=== PATIENT | male | born 1955 | race Caucasian/White ===

== ENCOUNTER 2016-11-22 19:47 | Observation (INO) ==
--- NOTE | 2016-11-22 20:23 | Emergency Department Note ---
START Narrative - START START: I examined this patient and my medical decision-making was reviewed with the STEEL LAYER/PA/Advanced Practice Nurse/Resident Physician. I agree with the documented findings, disposition and treatment plan as described except to the extent set forth below. 61 yo male presents with 8 hours of epigastric abdominal pain. started one hour after eating while working in the basement. Has been taking prilosec over the past couple days for "heart burn". Within the past couple hours the patient states the pain escalated, moved into his chest, described as sharp, stabbing in the bilateral lateral chest but did not radiate otherwise. Patient states he became short of breath which was associated with the pain. Denies n/v , diaphoresis, palpitations. No history of cardiac disease in the past and has not had a cardiac evaluation performed before. Patient had a negative first troponin. ECG showed normal sinus rhythm with rate of 96. Patient will be admitted to the hospital for further care and evaluation of his chest pain to rule out ACS.
[2016-11-22 20:53] LABS: Basophils % 0.1 %; Eosinophils % 0.2 %; Hemoglobin 14.9 g/dL (12.9-16.9); Immature Granulocytes % 0.5 % (0-4); Lymphocytes # 0.3 K/mcL (0.6-4.6); Lymphocytes % 3.8 %; Mean Corpuscular HGB Conc 33.1 g/dL (31.6-35.5); Mean Corpuscular Hemoglobin 28.9 pg (28.0-33.3); Mean Corpuscular Volume 87.2 fL (83.0-100.0); Mean Platelet Volume 10.1 fL (9.4-12.4); Monocytes # 0.5 K/mcL (0.0-1.3); Monocytes % 6.4 %; Neutrophils # 7.6 K/mcL (1.6-8.9); Platelet Count 315 K/mcL (140-400); Red Blood Count 5.16 M/mcL (4.19-5.50); Red Cell Distribution Width 13.1 % (11.5-14.5)
[2016-11-22 21:02] LABS: INR 1.1; Prothrombin Time 11.7 Seconds (9.4-12.1)
[2016-11-22 21:05] LABS: Activated Partial Thrombo Time 27.2 Seconds (26.0-36.0)
[2016-11-22 21:08] LABS: BUN/Creatinine Ratio 22 (6-26); Blood Urea Nitrogen 21 mg/dL (8-26); Carbon Dioxide 27 mEq/L (19-29); Chloride 103 mEq/L (98-109); Glucose 108 mg/dL (70-99); Osmolality,Calculated 294 (280-300); Potassium 3.7 mEq/L (3.5-4.5); eGFR For African Americans > 60 (> 60); eGFR For Non-African Americans > 60 (> 60)
[2016-11-22 21:09] LABS: Sodium 140 mEq/L (136-145)
--- NOTE | 2016-11-22 21:46 | Emergency Department Note ---
Disposition Clinical Impression: Chest pain Qualifiers: Chest pain type: unspecified Qualified Code(s): R07.9 - Chest pain, unspecified Disposition: Admitted As Inpatient Condition: Fair Referrals: NO,PCP [Non-Partnered Physician] - Forms: ED Satisfaction Letter Time of Disposition: 22:40 Chest Pain HPI - General Chief Complaint: ED Chest Pain Stated Complaint: chest pain julio c vomiting Time Seen by Provider: 11/22/16 19:58 Source: patient Limitations: no limitations Vital Signs Reviewed: Yes Nursing Notes Reviewed: Yes - History of Present Illness HPI Narrative: Patient is a 61-year-old male who presents to [facility] ED with a chief complaint of epigastric abdominal pain. States his symptoms started around 1 PM today and lasted until approximately 7:20 PM. States the pain came on gradually and was a burning sensation in the epigastric region. It had come on approximately one hour after he ate. States he was working downstairs in his basement and at approximately 3:30, the pain was so bad he had to stop working. States he laid down and either fell asleep or passed out. His woke him up around 4 PM. States he took a Prilosec as well as 2 Rolaids. States the pain was persistent and became very severe so much that it took his breath away. States he felt like he was very short of breath and the pain radiated up into his chest. Denies any nausea, vomiting, diaphoresis. No problems with urination or bowel movements. Patient states he did have flulike symptoms approximately one week ago but that resolved several days ago. Past medical history significant for hypertension. His only medications are lisinopril and sildafenil. Patient has never had a cardiac workup or a stress test performed. Pt complaint: chest pain Onset (ago): hour(s) Duration: gradually worsening, now resolved Onset: during exertion Pain Location: substernal, left chest, right chest Severity: severe Severity scale (1-10): 2 Quality: aching (burning) Pain Radiation: none Improves with: nothing Worsens with: exertion Associated symptoms: Reports: dyspnea. Denies: nausea, vomiting, diaphoresis, fever, cough Treatments prior to arrival chest pain: none - Related Data Home Medications Medication Instructions Recorded Confirmed Calcium Carbonate/Vitamin D3 1 tab PO DAILY 10/19/16 10/19/16 [Calcium 600-Vit D3 400 Tablet] Fluticasone Propionate Nasal 1 spray NS DAILY 10/19/16 10/19/16 [Flonase] Glucosamine HCl/Chondr Florez A Na 1 tab PO DAILY 10/19/16 10/19/16 [Cvs Glucosamine-Chondr Tablet] Lisinopril/Hydrochlorothiazide 1 tab PO DAILY 10/19/16 10/19/16 [Zestoretic 10-12.5 mg Tablet] Sildenafil Citrate [Viagra] 50 - 100 mg PO DAILY PRN 10/19/16 10/19/16 Allergies Allergy/AdvReac Type Severity Reaction Status Date / Time No Known Allergies Allergy Verified 11/22/16 19:49 All systems ED: reviewed and negative except as stated. Chest Pain PMH - Past Medical History Medical history: Reports: hypertension Surgical history: Reports: orthopedic, other Psychiatric history: Reports: no psych history - Social History Smoking Status: Never smoker Alcohol use: Reports: occasionally Drug use: Reports: none Physical Exam - General Limitations: no limitations General appearance: alert - Head Head exam: atraumatic, normocephalic, normal inspection - Eye Eye exam: Present: normal appearance, PERRL, EOMI - ENT ENT exam: normal exam, normal oropharynx, mucous membranes moist - Neck Neck exam: Present: normal inspection, full ROM, trachea midline - Chest Chest inspection: Present: normal inspection, symmetric chest wall rise - Respiratory Respiratory exam: Present: normal lung sounds bilaterally - Cardiovascular Cardiovascular exam: Present: regular rate, normal rhythm, normal heart sounds - Abdominal Exam Abdominal exam: Present: soft, tenderness, normal bowel sounds. Absent: distention, guarding, rebound, rigidity - Extremities Exam Extremities exam: Present: normal inspection, full ROM. Absent: tenderness, pedal edema - Back Exam Back exam: Present: normal inspection, full ROM. Absent: tenderness - Neurological Exam Neurological exam: Present: alert, oriented X3 - Psychiatric Psychiatric exam: Present: normal affect, normal mood - Skin Skin exam: Present: warm, dry, intact, normal color Course Course Narrative: Patient seen and examined. Epigastric abdominal pain radiating into the chest during exertion. No cardiac history. Cardiopulmonary workup initiated. - Reevaluation(s) Reevaluation #1: Patient's lab work appears unremarkable. An aspirin was ordered. EKG unremarkable. Due to patient's severe symptoms, we will go ahead and admit for observation. We will admit for chest pain, rule out ACS. I spoke with hospitalist Dr. Duque who has accepted patient for admission. Time: 22:41 Vital Signs Temperature 98.6 F 11/22/16 19:49 Pulse Rate 98 11/22/16 19:49 Respiratory Rate 20 11/22/16 19:49 Blood Pressure 150/89 11/22/16 19:49 O2 Sat by Pulse Oximetry 98 11/22/16 19:49 Temperature 98.6 F 11/22/16 19:49 Pulse Rate 84 11/22/16 21:25 Respiratory Rate 20 11/22/16 21:25 Blood Pressure 149/96 11/22/16 21:25 O2 Sat by Pulse Oximetry 97 11/22/16 21:25 Oxygen Delivery Oxygen Delivery Room Air Chest Pain - Medical Records Medical records reviewed: Yes I reviewed the patient's medical records. - Lab Data Lab results reviewed: Yes I reviewed the patient's lab results. Result diagrams: 11/22/16 20:41 11/22/16 20:41 Lab Results 11/22/16 11/22/16 11/22/16 Range/Units 20:41 20:41 20:41 WBC 8.5 (4.3-11.1) K/mcL RBC 5.16 (4.19-5.50) M/mcL Hgb 14.9 (12.9-16.9) g/dL Hct 45.0 (37.5-50.1) % MCV 87.2 (83.0-100.0) fL MCH 28.9 (28.0-33.3) pg MCHC 33.1 (31.6-35.5) g/dL RDW 13.1 (11.5-14.5) % Plt Count 315 (140-400) K/mcL MPV 10.1 (9.4-12.4) fL Immature Gran % 0.5 (0-4) % Seg Neutrophils % 89.0 % Lymphocytes % 3.8 % Monocytes % 6.4 % Eosinophils % 0.2 % Basophils % 0.1 % Neutrophils # 7.6 (1.6-8.9) K/mcL Lymphocytes # 0.3 L (0.6-4.6) K/mcL Monocytes # 0.5 (0.0-1.3) K/mcL Eosinophils # 0.0 (0.0-0.6) K/mcL Basophils # 0.0 (0.0-0.2) K/mcL PT 11.7 (9.4-12.1) Seconds INR 1.1 APTT 27.2 (26.0-36.0) Seconds Sodium 140 (136-145) mEq/L Potassium 3.7 (3.5-4.5) mEq/L Chloride 103 (98-109) mEq/L Carbon Dioxide 27 (19-29) mEq/L BUN 21 (8-26) mg/dL Creatinine 0.96 (0.72-1.25) mg/dL Est GFR ( Amer) > 60 (> 60) Est GFR (Non-Af Amer) > 60 (> 60) BUN/Creatinine Ratio 22 (6-26) Glucose 108 H (70-99) mg/dL Calculated Osmolality 294 (280-300) Calcium 9.0 (8.6-10.8) mg/dL Troponin I (0-0.03) ng/mL 11/22/16 Range/Units 20:41 WBC (4.3-11.1) K/mcL RBC (4.19-5.50) M/mcL Hgb (12.9-16.9) g/dL Hct (37.5-50.1) % MCV (83.0-100.0) fL MCH (28.0-33.3) pg MCHC (31.6-35.5) g/dL RDW (11.5-14.5) % Plt Count (140-400) K/mcL MPV (9.4-12.4) fL Immature Gran % (0-4) % Seg Neutrophils % % Lymphocytes % % Monocytes % % Eosinophils % % Basophils % % Neutrophils # (1.6-8.9) K/mcL Lymphocytes # (0.6-4.6) K/mcL Monocytes # (0.0-1.3) K/mcL Eosinophils # (0.0-0.6) K/mcL Basophils # (0.0-0.2) K/mcL PT (9.4-12.1) Seconds INR APTT (26.0-36.0) Seconds Sodium (136-145) mEq/L Potassium (3.5-4.5) mEq/L Chloride (98-109) mEq/L Carbon Dioxide (19-29) mEq/L BUN (8-26) mg/dL Creatinine (0.72-1.25) mg/dL Est GFR ( Amer) (> 60) Est GFR (Non-Af Amer) (> 60) BUN/Creatinine Ratio (6-26) Glucose (70-99) mg/dL Calculated Osmolality (280-300) Calcium (8.6-10.8) mg/dL Troponin I 0.00 (0-0.03) ng/mL - Radiology Data Radiology results reviewed: Yes I reviewed the patient's radiology results. Chest X-Ray 11/22/16 19:58 IMPRESSION: 1. Low lung volumes. D/ / 11/22/2016 20:19:11 Ethan Cohen MD / [email or web address] Interpreting Provider: Ethan Cohen MD - EKG Data EKG attestation: Yes I reviewed and interpreted this EKG. EKG results narrative: EKG done at 1958 shows normal sinus rhythm with a rate of [address] elevation or depression. Left axis deviation. Heart Score - Score History: Moderately Suspicious EKG: Non Specific repolarisation Disturbance Age: 45-65 Risk Factors: 1-2 risk factors Troponin: Less than normal limit HEART Score Total: 4
[2016-11-22] MEDS ORDERED: Aspirin 81 MG TAB.CHEW PO STA (21:59)
[2016-11-22] MEDS ORDERED: Naloxone 0.4 MG/ML INJ IVP PRN (23:31)
--- NOTE | 2016-11-22 23:39 | Internal Med History&Physical ---
Date of Encounter: 11/22/16 Time of Encounter: 23:35 Assessment and Plan (1) Chest pain Current visit: Yes Status: Acute Patient reports epigastric pain radiating to his chest and accompanied by shortness of breath earlier today. EKG showed normal sinus rhythm with no ST elevations or depressions. Initial troponin was negative. 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 Qualifiers: Chest pain type: precordial pain Qualified Code(s): R07.2 - Precordial pain (2) Hypertension Current visit: Yes Status: Acute Continue home doses of lisinopril and HCTZ. Qualifiers: Hypertension type: essential hypertension Qualified Code(s): I10 - Essential (primary) hypertension (3) Epigastric pain Current visit: Yes Status: Acute Patient reported burning epigastric pain radiating to his chest earlier today, accompanied by nausea and shortness of breath. Abdomen non-tender on exam. Differential includes GERD, cholecystitis/cholelithiasis, gastroenteritis, and will rule out ACS. lipase, LFTs ordered. (4) DVT prophylaxis Current visit: Yes Status: Acute Encourage ambulation anti-embolic stockings Internal Medicine - H&P: HPI Chief complaint: chest pain Admitted From: Emergency Dept Plans for Post Hospital Care: Home History of present illness: Mr. Ron is a 61 year old male with hypertension who presented to the emergency department this evening with complaints of epigastric and chest pain. Patient reports he was working on remodeling his basement when he started getting pain in his epigastric area at about 1 PM, and felt like every time he leaned over his food was coming up. The pain continued to worsen and by 3 PM it was so bad he had to discontinue his work, he reported he felt short of breath, the pain was radiating throughout his chest, it hurt when he took a deep breath. He reports the pain continued to worsen and he lay down around 5 or 6:00 he found a comfortable position and reports that the pain went away, he fell asleep and when he woke up the pain and shortness of breath was gone. He reports he had flu symptoms including fever and body aches approximately a week ago but those have resolved. He denies any lightheadedness, dizziness, headache , palpitations. He denies any vomiting, diarrhea, changes in stools, or bloody stools. He denies any numbness or tingling anywhere. He does report that he spent having episodes of heartburn on and off over the last several weeks, and he just started taking Prilosec yesterday. Evaluation in the emergency department included chest x-ray which showed low lung volumes, EKG which showed normal sinus rhythm and no ST elevations or depressions. Troponin was negative at 0.0. Rest of his lab work was unremarkable. On exam, patient is alert and oriented, in no acute distress, and appears to be resting comfortably. Heart has regular rate and rhythm, lungs are clear bilaterally to auscultation. Past Med Surg Social Fam HX - Past Medical History Medical history: hypertension Psychiatric history: no psych history - Past Surgical History Surgical History: orthopedic, other (finger surgery) - Social History Smoking Status: Never smoker Smokeless Tobacco Status: Yes Alcohol use: occasionally Drug use: none - Family History Mother Living Status: Cause of : Cancer Father Living Status: Still Living Internal Medicine - H&P: Meds Calcium Carbonate/Vitamin D3 [Calcium 600-Vit D3 400 Tablet] 1 tab PO BID [History] Fluticasone Propionate Nasal [Flonase] 1 spray NS DAILY 10/19/16 [History] Glucosamine HCl/Chondr Florez A Na [Cvs Glucosamine-Chondr Tablet] 1 tab PO BID [History] Lisinopril/Hydrochlorothiazide [Zestoretic 10-12.5 mg Tablet] 1 tab PO DAILY [History] Sildenafil Citrate [Viagra] 50 - 100 mg PO DAILY PRN 10/19/16 [History] Allergies No Known Allergies Allergy (Verified 11/22/16 19:49) All Systems PM: A 10-system review of systems was performed and is negative for pertinent findings except as documented above in the HPI. - Constitutional Constitutional: no chills, no fever(s), no night sweats - EENT Eyes: no change in vision, no discharge, no pain, no photophobia Ears: no ear discharge, no ear pain, no tinnitus Nose, mouth and throat: no dysphagia, no nasal discharge, no neck pain, no sore throat - Cardiovascular Cardiovascular ROS IM: chest pain, dyspnea, no diaphoresis, no lightheadedness, no palpitations, no syncope - Respiratory Respiratory: dyspnea, no cough, no wheezing, no excessive phlegm production - Gastrointestinal Gastrointestinal: abdominal pain, heartburn, nausea, no diarrhea, no hematemesis , no hematochezia, no melena, no vomiting - Musculoskeletal Musculoskeletal ROS IM: no numbness, no tingling - Integumentary Integumentary IM: no rash, no unusual bruising - Neurological Neurological ROS: no confusion, no convulsions, no focal weakness, no numbness, no tingling, no tremor(s) - Hematologic/Lymphatic Hematologic/Lymphatic: no easy bruising - Constitutional Vitals: Temp Pulse Resp BP Pulse Ox 98 F 88 18 144/80 99 11/22/16 22:59 11/22/16 22:25 11/22/16 22:59 11/22/16 22:59 11/22/16 22:25 General appearance: Present: A&O X 3, pleasant, no acute distress - Head Head exam: Present: atraumatic, normocephalic - Eye Eye exam: Present: PERRL, conjuntiva pink, sclera anicteric Pupils: Present: PERRL - Neck Neck exam general surgery: Present: supple, trachea midline. Absent: lymphadenopathy - Respiratory Respiratory exam: Present: CTAB. Absent: accessory muscle use, rales, rhonchi, wheezes - Cardiovascular Cardiovascular exam: Present: RRR, +S1, +S2. Absent: diastolic murmur, gallop, rubs, systolic murmur - GI/Abdominal GI/Abdominal exam: Present: normal bowel sounds, soft, no peritoneal signs. Absent: distended, tenderness - Extremities Exam Extremities exam: Present: warm, radial pulses palpable and symetrical. Absent : calf tenderness, cyanotic, pedal edema - Neurological Exam Neurological exam: Present: CN II-XII intact, oriented X3, no focal deficits. Absent: facial droop, speech deficit - Skin Skin exam: Present: dry, intact Internal Med - H&P Results - Labs CBC & Chem 7: 11/22/16 20:41 11/22/16 20:41 Labs: All Lab Results (24 Hours) 11/22/16 11/22/16 11/22/16 Range/Units 20:41 20:41 20:41 WBC 8.5 (4.3-11.1) K/mcL RBC 5.16 (4.19-5.50) M/mcL Hgb 14.9 (12.9-16.9) g/dL Hct 45.0 (37.5-50.1) % MCV 87.2 (83.0-100.0) fL MCH 28.9 (28.0-33.3) pg MCHC 33.1 (31.6-35.5) g/dL RDW 13.1 (11.5-14.5) % Plt Count 315 (140-400) K/mcL MPV 10.1 (9.4-12.4) fL Immature Gran % 0.5 (0-4) % Seg Neutrophils % 89.0 % Lymphocytes % 3.8 % Monocytes % 6.4 % Eosinophils % 0.2 % Basophils % 0.1 % Neutrophils # 7.6 (1.6-8.9) K/mcL Lymphocytes # 0.3 L (0.6-4.6) K/mcL Monocytes # 0.5 (0.0-1.3) K/mcL Eosinophils # 0.0 (0.0-0.6) K/mcL Basophils # 0.0 (0.0-0.2) K/mcL PT 11.7 (9.4-12.1) Seconds INR 1.1 APTT 27.2 (26.0-36.0) Seconds Sodium 140 (136-145) mEq/L Potassium 3.7 (3.5-4.5) mEq/L Chloride 103 (98-109) mEq/L Carbon Dioxide 27 (19-29) mEq/L BUN 21 (8-26) mg/dL Creatinine 0.96 (0.72-1.25) mg/dL Est GFR ( Amer) > 60 (> 60) Est GFR (Non-Af Amer) > 60 (> 60) BUN/Creatinine Ratio 22 (6-26) Glucose 108 H (70-99) mg/dL Calculated Osmolality 294 (280-300) Calcium 9.0 (8.6-10.8) mg/dL Troponin I (0-0.03) ng/mL 11/22/16 Range/Units 20:41 WBC (4.3-11.1) K/mcL RBC (4.19-5.50) M/mcL Hgb (12.9-16.9) g/dL Hct (37.5-50.1) % MCV (83.0-100.0) fL MCH (28.0-33.3) pg MCHC (31.6-35.5) g/dL RDW (11.5-14.5) % Plt Count (140-400) K/mcL MPV (9.4-12.4) fL Immature Gran % (0-4) % Seg Neutrophils % % Lymphocytes % % Monocytes % % Eosinophils % % Basophils % % Neutrophils # (1.6-8.9) K/mcL Lymphocytes # (0.6-4.6) K/mcL Monocytes # (0.0-1.3) K/mcL Eosinophils # (0.0-0.6) K/mcL Basophils # (0.0-0.2) K/mcL PT (9.4-12.1) Seconds INR APTT (26.0-36.0) Seconds Sodium (136-145) mEq/L Potassium (3.5-4.5) mEq/L Chloride (98-109) mEq/L Carbon Dioxide (19-29) mEq/L BUN (8-26) mg/dL Creatinine (0.72-1.25) mg/dL Est GFR ( Amer) (> 60) Est GFR (Non-Af Amer) (> 60) BUN/Creatinine Ratio (6-26) Glucose (70-99) mg/dL Calculated Osmolality (280-300) Calcium (8.6-10.8) mg/dL Troponin I 0.00 (0-0.03) ng/mL - Diagnostic Studies Chest x-ray Additional comments: Chest X-Ray 11/22/16 19:58 IMPRESSION: 1. Low lung volumes. D/ / 11/22/2016 20:19:11 Ethan Cohen MD / [email or web address] Interpreting Provider: Ethan Cohen MD
[2016-11-23 00:29] LABS: Albumin 3.8 g/dL (3.5-5.0); Bilirubin,Direct 1.8 mg/dL (0.0-0.5); Bilirubin,Indirect 0.8 mg/dL (0.0-1.2); Bilirubin,Total 2.6 mg/dL (0.2-1.2); Globulin 3.8 g/dL (2.4-3.5); Total Protein 7.6 g/dL (6.0-8.3)
[2016-11-23 04:37] LABS: Basophils % 0.2 %; Eosinophils % 0.1 %; Hemoglobin 13.4 g/dL (12.9-16.9); Immature Granulocytes % 0.4 % (0-4); Lymphocytes # 0.4 K/mcL (0.6-4.6); Lymphocytes % 3.7 %; Mean Corpuscular HGB Conc 32.7 g/dL (31.6-35.5); Mean Corpuscular Hemoglobin 28.3 pg (28.0-33.3); Mean Corpuscular Volume 86.7 fL (83.0-100.0); Mean Platelet Volume 10.5 fL (9.4-12.4); Monocytes # 0.6 K/mcL (0.0-1.3); Monocytes % 5.7 %; Neutrophils # 9.9 K/mcL (1.6-8.9); Platelet Count 298 K/mcL (140-400); Red Blood Count 4.73 M/mcL (4.19-5.50); Red Cell Distribution Width 13.1 % (11.5-14.5); Segmented Neutrophils % 89.9 %
[2016-11-23 04:56] LABS: BUN/Creatinine Ratio 25 (6-26); Blood Urea Nitrogen 19 mg/dL (8-26); Calcium 8.5 mg/dL (8.6-10.8); Carbon Dioxide 23 mEq/L (19-29); Chloride 104 mEq/L (98-109); Glucose 116 mg/dL (70-99); Osmolality,Calculated 289 (280-300); Sodium 138 mEq/L (136-145); eGFR For African Americans > 60 (> 60); eGFR For Non-African Americans > 60 (> 60)
[2016-11-23 05:09] LABS: Potassium 4.5 mEq/L (3.5-4.5)
[2016-11-23] MEDS ORDERED: Regadenoson 0.4 MG/5 ML SYRINGE IVP ONE (06:11)
--- NOTE | 2016-11-23 10:29 | Nuclear Medicine Stress Report ---
Exercise Nuclear Stress Name: Rafael Ron Date of Study: 11/23/2016 Date: 1955 Ht: 71.0 in Medical Record#: [id number] Age: 61 Wt: 214.0 lb Gender: Male Order #: [id number] Room: [facility] Supervising Provider: Jelly Castro CNP Reading Physician: Rahul Pandey DO, FACMan, SHADY GILBERT Ordering Physician: Sana Olvera CNP Primary Care Physician: Dennis Godwin MD Stress Technologist: Consuelo Ndiaye SYSTEMS DEVELOPMENT MANAGER, CCT Indications: Chest Pain Impression: Exercise ECG is negative for ischemia. The exercise capacity was excellent. Patient had no chest pain during stress. Gated EF = 74%. Perfusion imaging was negative for ischemia or infarct. History: Hypertension Stress Test Summary: Stress Test Type: Treadmill Protocol: Dane Baseline Information: Initial Heart Rate: 71 Blood Pressure: 122/78 Stress Information: Stress Time: 11 min 00 sec Test Terminated Due to (primary): Fatigue Maximum Blood Pressure: 174/80 Maximum Heart Rate: 147 Percent Maximum Heart Rate Achieved: 92 Double Product: [id number] METS Reached: 12.8 Symptoms: Fatigue, No chest symptoms Nuclear Summary: SPECT myocardial perfusion imaging using Tc99m Sestamibi given intravenously was performed at rest and following cardiac stress testing. The resting images were obtained following initial dose of 11.3 mCi. Following stress an additional dose of 34.9 mCi was given at peak exercise or 30 seconds post regadenoson infusion. Medication Given: Time Medication Dose Units Route Findings: Stress Note * Resting ECG demonstrated normal sinus rhythm. * No baseline arrhythmias were noted. * Exercise ECG is negative for ischemia. * Rare PVC and PAC noted during stress. * The exercise capacity was excellent. * Patient had no chest pain during stress. * Normal hemodynamic responses to exercise. Study Quality * Study quality is good. Gated EF % * Gated EF = 74%. Left Ventricle * The left ventricle is not dilated. LVEDV = 97 mL. NORMALS * Normal wall motion. * Normal segmental perfusion in stress. Apical Perfusion Rest * The apex segment shows a mild reduction in perfusion. This resolved with stress imaging, which is consistent with artifact. TID * No evidence of transient ischemic dilatation. TID ratio = 0.71. Lung Uptake * There is no evidence of increase lung uptake. Updated by Rahul Pandey DO, MATTY, OFELIA, SHADY on 11/23/2016 10:22:07 AM electronically signed on 11/23/2016 10:25:13 AM with status of Final
--- NOTE | 2016-11-23 11:39 | Internal Med Progress Note ---
Date of Encounter: 11/23/16 Time of Encounter: 10:30 - Assessment and plan (1) Chest pain Current Visit: Yes Status: Ruled-out Assessment and plan: Patient has denied chest pain since admission. Upon further discussion with the patient, his pain is located right upper quadrant and epigastric area. Troponins negative. Chest x-ray negative. Stress test negative. Acute coronary syndrome ruled out. ITS Impressions Chest X-Ray 11/22/16 19:58 IMPRESSION: 1. Low lung volumes. D/ / 11/22/2016 20:19:11 Ethan Cohen MD / eugene Interpreting Provider: Ethan Cohen MD Nuclear stress test impression: Exercise ECG is negative for ischemia. Exercise capacity was excellent. Patient had no chest pain during stress. Gated ejection fraction of 74%. Perfusion imaging was negative for ischemia or infarct. Qualifiers: Chest pain type: precordial pain Qualified Code(s): R07.2 - Precordial pain (2) Epigastric pain Current Visit: Yes Status: Acute Assessment and plan: Patient currently denies pain or nausea. Abdominal pelvic CT revealing cholelithiasis with calculus of gallbladder neck. Elevated liver enzymes as well as elevated bili noted on this morning's labs. Surgery Dr. Ruff has been brought onboard. Patient NPO pending surgical consult. ITS Impressions Abdomen/Pelvis CT 11/23/16 10:00 IMPRESSION: Cholelithiasis, with calculus at the gallbladder neck. Fatty liver. Sequela of granulomatous disease. 6 mm indeterminate noncalcified right middle lobe pulmonary nodule, with follow-up recommendations as below. 8 mm isodense lesion is seen exophytic from the posterior margin of the left kidney. Some considerations include hyperdense cyst or small renal neoplasm. Comparison with any remote outside prior would be helpful to determine any interval change. Ultrasound could be considered for further characterization. Fleischner Society guidelines for follow-up and management of incidentally detected pulmonary nodules:Single Solid Nodule:Nodule size less than 6 mmIn a low-risk patient, no routine follow-up.In a high-risk patient, optional CT at 12 months. Nodule size equals 6-8 mmIn a low-risk patient, CT at 6-12 months, then consider CT at 18-24 months.In a high-risk patient, CT at 6-12 months, then CT at 18-24 months.Nodule size greater than 8 mmIn a low-risk patient, consider CT, PET/CT, or tissue sampling at 3 months.In a high-risk patient, consider CT, PET/CT, or tissue sampling at 3 months.Multiple Solid Nodules:Nodule size less than 6 mmIn a low-risk patient, no routine follow-up.In a high-risk patient, optional CT at 12 months. Nodule size equals 6-8 mmIn a low-risk patient, CT at 3-6 months, then consider CT at 18-24 months.In a high-risk patient, CT at 3-6 months, then CT at 18-24 months.Nodule size greater than 8 mmIn a low-risk patient, CT at 3-6 months, then consider CT at 18-24 months.In a high-risk patient, CT at 3-6 months, then CT at 18-24 months.- Low risk patients include individuals with minimal or absent history of smoking and other known risk factors.- High risk patients include individuals with a history or smoking or known risk factors.Radiology 2017 http://pubs.rsna.org/doi/full/10.1148/radiol.4591046759 D/ / Orlando Peter MD / Orlando Peter MD Interpreting Provider: Orlando Peter MD (3) Cholelithiasis Current Visit: Yes Status: Acute (4) Transaminitis Current Visit: Yes Status: Acute (5) Elevated bilirubin Current Visit: Yes Status: Acute (6) Hypertension Current Visit: Yes Status: Chronic Assessment and plan: Controlled, home lisinopril/HCTZ continued (7) DVT prophylaxis Current Visit: Yes Status: Acute Assessment and plan: Up ad giulia. currently observation patient. - Subjective Interval history: Patient seen and examined. On examination, patient is sitting upright in his chair conversing with his . He denies pain or shortness of breath at this time. He states his last bout pain was last night and states that he is having intermittent bouts of right upper quadrant abdominal pain. - Constitutional Vitals: Temp Pulse Resp BP Pulse Ox 97.8 F 62 16 130/85 98 11/23/16 11:10 11/23/16 11:10 11/23/16 11:10 11/23/16 11:10 11/23/16 11:10 General appearance: Present: A&O X 3, pleasant, no acute distress, answers questions appropriately - Head Head exam: Present: atraumatic, normocephalic - Eye Eye exam: Present: PERRL, conjuntiva pink, sclera anicteric Pupils: Present: PERRL - Neck Neck exam general surgery: Present: supple, trachea midline. Absent: lymphadenopathy - Respiratory Respiratory exam: Present: CTAB. Absent: accessory muscle use, rales, respiratory distress, rhonchi, wheezes - Cardiovascular Cardiovascular exam: Present: RRR, +S1, +S2. Absent: diastolic murmur, gallop, rubs, systolic murmur - GI/Abdominal GI/Abdominal exam: Present: normal bowel sounds, soft, no peritoneal signs. Absent: distended, tenderness (no tenderness to RUQ or epigastric areas) - Extremities Exam Extremities exam: Present: warm, radial pulses palpable and symetrical. Absent : calf tenderness, cyanotic, pedal edema - Neurological Exam Neurological exam: Present: alert, CN II-XII intact, normal gait, oriented X3, no focal deficits, strengths equal and symetr throughout. Absent: pronater drift, facial droop, speech deficit - Skin Skin exam: Present: dry, intact, normal color, warm Internal Medicine: Result - Labs CBC & Chem 7: 11/23/16 03:58 11/23/16 03:58 Labs: Short CBC 11/23/16 Range/Units 03:58 WBC 11.0 (4.3-11.1) K/mcL Hgb 13.4 D (12.9-16.9) g/dL Hct 41.0 (37.5-50.1) % Plt Count 298 (140-400) K/mcL Neutrophils # 9.9 H (1.6-8.9) K/mcL BMP 11/23/16 03:58 Sodium 138 Potassium 4.5 Chloride 104 Carbon Dioxide 23 BUN 19 Creatinine 0.76 Glucose 116 H Calcium 8.5 L Cardiac Enzymes 11/23/16 Range/Units 03:58 Troponin I 0.01 (0-0.03) ng/mL - ABG Interpretation ABG results: PT/INR, D-dimer PT 11.7 Seconds (9.4-12.1) 11/22/16 20:41 - Impressions Impressions Abdomen/Pelvis CT 11/23/16 10:00 IMPRESSION: Cholelithiasis, with calculus at the gallbladder neck. Fatty liver. Sequela of granulomatous disease. 6 mm indeterminate noncalcified right middle lobe pulmonary nodule, with follow-up recommendations as below. 8 mm isodense lesion is seen exophytic from the posterior margin of the left kidney. Some considerations include hyperdense cyst or small renal neoplasm. Comparison with any remote outside prior would be helpful to determine any interval change. Ultrasound could be considered for further characterization. Fleischner Society guidelines for follow-up and management of incidentally detected pulmonary nodules:Single Solid Nodule:Nodule size less than 6 mmIn a low-risk patient, no routine follow-up.In a high-risk patient, optional CT at 12 months. Nodule size equals 6-8 mmIn a low-risk patient, CT at 6-12 months, then consider CT at 18-24 months.In a high-risk patient, CT at 6-12 months, then CT at 18-24 months.Nodule size greater than 8 mmIn a low-risk patient, consider CT, PET/CT, or tissue sampling at 3 months.In a high-risk patient, consider CT, PET/CT, or tissue sampling at 3 months.Multiple Solid Nodules:Nodule size less than 6 mmIn a low-risk patient, no routine follow-up.In a high-risk patient, optional CT at 12 months. Nodule size equals 6-8 mmIn a low-risk patient, CT at 3-6 months, then consider CT at 18-24 months.In a high-risk patient, CT at 3-6 months, then CT at 18-24 months.Nodule size greater than 8 mmIn a low-risk patient, CT at 3-6 months, then consider CT at 18-24 months.In a high-risk patient, CT at 3-6 months, then CT at 18-24 months.- Low risk patients include individuals with minimal or absent history of smoking and other known risk factors.- High risk patients include individuals with a history or smoking or known risk factors.Radiology 2017 http://pubs.rsna.org/doi/full/10.1148/radiol.1859096690 D/ / Orlando Peter MD / Orlando Peter MD Interpreting Provider: Orlando Peter MD Consult Discharge Plan - Plan Referrals: Dennis Godwin MD [Primary Care Provider] -
--- NOTE | 2016-11-23 11:48 | ECHO - Doppler Report ---
Echocardiogram Name: Rafael Ron Date of Study: 11/23/2016 Date: 1955 Ht: 70.0 in Medical Record#: [id number] Age: 61 Wt: 214.0 lb Gender: Male BSA: 2.15 Order #: [id number] Location: [facility] Room #: 3B12 Reading Physician: Rahul Pandey DO, FACC, OFELIA, SHADY Lead Applier: Yesenia Rizzo, JAM, RVT Ordering Physician: Pepper Pérez CNP Primary Physician: Dennis Godwin MD Indications: Chest pain Impressions: LVEF 65%. Normal LV chamber size, wall thickness and function. Moderate left ventricular diastolic dysfunction. Normal right ventricular structure and function. Moderately dilated left atrium. No evidence of pulmonary hypertension. No significant valvular dysfunction. Left Ventricular Wall Motion: Rest Echo Findings All wall segments showed normal motion. Findings: Study Quality * Technically adequate exam. ECG Findings * Normal sinus rhythm. Left Ventricle * LVEF 65%. * Normal LV chamber size, wall thickness and function. * Moderate left ventricular diastolic dysfunction. Right Ventricle * Normal right ventricular structure and function. Left Atrium * Moderately dilated left atrium. Right Atrium * Mildly dilated right atrium. Interatrial Septum * No evidence of PFO by color Doppler. Aortic Valve * Trileaflet aortic valve with normal function. * No aortic regurgitation. * No aortic stenosis. Mitral Valve * Normal mitral valve structure and function. * No mitral regurgitation. * No mitral stenosis. Tricuspid Valve * Normal tricuspid valve structure and function. * Trace tricuspid regurgitation. * No evidence of pulmonary hypertension. Pulmonic Valve * Pulmonic valve is not well visualized. * No pulmonic regurgitation. Aorta * Normally sized aortic root. Pericardium * The pericardium appears normal. IVC * Normal IVC dimensions and inspiratory collapse. Pulmonary Artery * Normal visualized portions of the main pulmonary artery. History Hypertension Measurements: BP: 135/ 86 2D Normal Values IVSd: 1.00 cm 0.6 - 1.0 cm LVIDd: 4.20 cm 3.7 - 5.6 cm LVPWd: .90 cm 0.6 - 1.1 cm LVIDs: 2.50 cm 1.5 - 3.6 cm AO: 2.70 cm < 4.0 cm LA: 4.30 cm 2.0 - 4.0cm %FS: 40.50 cm >25 % LA volume: 82 Mitral Valve Peak E:.68 m/sec Peak A:.44 m/sec E/A Ratio:1.5 Peak E' Lat Zheng:14.8 cm/s Peak E' Med Zheng:7.02 cm/s E/E' Lat Ratio:4.6 E/E' Med Ratio:9.7 Tricuspid Valve TV Regurg Peak Grad: 18.00mmHg TV Regurg Peak Zheng: 2.14m/sec Updated by Rahul Pandey DO, FACMan, OFELIA, SHADY on 11/23/2016 11:42:34 AM electronically signed on 11/23/2016 11:43:28 AM with status of Final Wall Motion Arana: 1=Normal, 2=Hypokinesis, 3=Akinesis, 4=Dyskinesis, 5=Aneurysmal, 6=Hyperkinetic, X=Not Visualized (Blank)=Missing
[2016-11-23 12:38] LABS: Albumin/Globulin Ratio 0.8 (1.1-2.2); Globulin 3.9 g/dL (2.4-3.5)
[2016-11-23 12:44] LABS: Bilirubin,Direct 2.3 mg/dL (0.0-0.5); Bilirubin,Indirect 2.4 mg/dL (0.0-1.2); Bilirubin,Total 4.7 mg/dL (0.2-1.2)
[2016-11-23 12:45] LABS: Albumin 3.2 g/dL (3.5-5.0); Total Protein 7.1 g/dL (6.0-8.3)
--- NOTE | 2016-11-23 16:32 | General Surgery Consult Note ---
Date of Encounter: 11/23/16 Time of Encounter: 16:15 Assessment and Plan (1) Cholelithiasis Current Visit: Yes Status: Acute May have clear liquids NPO after midnight MRCP today Dr. Mckeon to evaluate Supportive care/pain control Repeat labs Will consider cholecystectomy if indicated after evaluted by Dr. Mckeon Qualifiers: Cholelithiasis location: gallbladder Cholecystitis presence: with cholecystitis Cholecystitis acuity: acute and chronic Biliary obstruction: without biliary obstruction Qualified Code(s): K80.12 - Calculus of gallbladder with acute and chronic cholecystitis without obstruction (2) Elevated liver function tests Current Visit: Yes Status: Acute MRCP today Consult to Dr. Mckeon Repeat am labs History of Present Illness Consult date: 11/23/16 Reason for consult: abdominal pain Requesting physician: Sana Olvera History of present illness: Mr. Ron is a very pleasant 61 year old male with a past medical history significant for hypertension. He reported to the ED after having sudden onset of epigastric abdominal discomfort. He states that the pain progressively worsened and was radiating through his chest. He reports increasing pain with deep breaths and states that he felt short of breath. He denies having pain like this in the past. He denies fevers/chills. Denies any changes in bowel habits. He does admit to increasing heartburn symptoms over the past few weeks and states that he recently started taking prilosec. He has had radiological imaging which shows evidence of cholelithiasis with a stones around the neck of the gallbladder. He also has elevated liver function tests. We have been asked to see and evaluate the patient for recommendations. Past Med Surg Social Fam HX - Past Medical History Source: patient, old records reviewed Medical history: hypertension Psychiatric history: no psych history - Past Surgical History Surgical History: orthopedic, other (finger surgery), other (colonoscopy 2006) - Social History Smoking Status: Never smoker Smokeless Tobacco Status: Yes Alcohol use: occasionally Drug use: none - Family History Father Living Status: Still Living Hx Family Cardiac Disorders: Yes (HTN) Hx Family Respiratory Disorders: No Hx Family Cancer: Yes (Prostate) Hx Family GI Disorders: No Hx Family Genitourinary Disorders: No Hx Family Endocrine Disorder: No Hx Family Musculoskeletal Disorders: No Hx Family Neuromuscular Disorders: No Hx Family Neurologic Disorders: No Hx Family HEENT Disorders: No Hx Family Autoimmune Disorders: No Hx Family Reproductive Disorders: No Hx Family Psychosocial Disorders: No Hx Family Medical Disorders: No Mother Living Status: Cause of : Cancer Hx Family Cardiac Disorders: Yes (HTN) Hx Family Respiratory Disorders: No Hx Family Cancer: Yes (Sarcoma) Hx Family GI Disorders: No Hx Family Genitourinary Disorders: No Hx Family Endocrine Disorder: Yes (thyroid) Hx Family Musculoskeletal Disorders: No Hx Family Neuromuscular Disorders: No Hx Family Neurologic Disorders: No Hx Family HEENT Disorders: No Hx Family Autoimmune Disorders: No Hx Family Reproductive Disorders: No Hx Family Psychosocial Disorders: No Hx Family Medical Disorders: No Medications and Allergies Calcium Carbonate/Vitamin D3 [Calcium 600-Vit D3 400 Tablet] 1 tab PO BID [History] Fluticasone Propionate Nasal [Flonase] 1 spray NS DAILY 10/19/16 [History] Glucosamine HCl/Chondr Florez A Na [Cvs Glucosamine-Chondr Tablet] 1 tab PO BID [History] Lisinopril/Hydrochlorothiazide [Zestoretic 10-12.5 mg Tablet] 1 tab PO DAILY [History] Sildenafil Citrate [Viagra] 50 - 100 mg PO DAILY PRN 10/19/16 [History] Allergies No Known Allergies Allergy (Verified 11/22/16 19:49) Review of Systems All systems PM: reviewed and no additional remarkable complaints except as stated (in the HPI) All systems PM: A 10-system review of systems was performed and is negative for pertinent findings except as documented above in the HPI. General Surgery Exam Initial Vital Signs Temp Pulse Resp BP Pulse Ox 98.6 F 98 20 150/89 98 11/22/16 19:49 11/22/16 19:49 11/22/16 19:49 11/22/16 19:49 11/22/16 19:49 - General physical appearance well developed, well nourished, no distress - Eyes normal ocular movement - ENT normal mucosa, atraumatic, normocephalic - Neck trachea midline - Respiratory normal respiratory effort, clear to auscultation - Cardiovascular Cardiovascular exam: Present: RRR - Abdomen Abdomen general surgery: Present: bowel sounds present, soft, tender Abdominal Tenderness: Present: epigastic, RUQ - Integumentary Integumentary general surgery: Present: warm and dry - Neurologic Present: CN 2-12 grossly intact - Musculoskeletal Present: normal gait, normal posture - Psychiatric Psychiatric general surgery: Present: appropriate, oriented to person, oriented to place, oriented to time, speech is normal, memory intact Exam Initial Vital Signs Temp Pulse Resp BP Pulse Ox 98.6 F 98 20 150/89 98 11/22/16 19:49 11/22/16 19:49 11/22/16 19:49 11/22/16 19:49 11/22/16 19:49 Results - Labs 11/23/16 03:58 11/23/16 03:58 Abnormal lab results Neutrophils # 9.9 K/mcL (1.6-8.9) H 11/23/16 03:58 Lymphocytes # 0.4 K/mcL (0.6-4.6) L 11/23/16 03:58 Glucose 116 mg/dL (70-99) H 11/23/16 03:58 Calcium 8.5 mg/dL (8.6-10.8) L 11/23/16 03:58 Total Bilirubin 4.7 mg/dL (0.2-1.2) H D 11/23/16 12:10 Direct Bilirubin 2.3 mg/dL (0.0-0.5) H 11/23/16 12:10 Indirect Bilirubin 2.4 mg/dL (0.0-1.2) H 11/23/16 12:10 AST 355 Units/L (5-34) H 11/23/16 12:10 ALT 602 Units/L (0-55) H 11/23/16 12:10 Alkaline Phosphatase 582 Units/L (38-126) H 11/23/16 12:10 Albumin 3.2 g/dL (3.5-5.0) L 11/23/16 12:10 Globulin 3.9 g/dL (2.4-3.5) H 11/23/16 12:10 Albumin/Globulin Ratio 0.8 (1.1-2.2) L 11/23/16 12:10 Diabetes panel 11/23/16 11/23/16 Range/Units 03:58 12:10 Sodium 138 (136-145) mEq/L Potassium 4.5 (3.5-4.5) mEq/L Chloride 104 (98-109) mEq/L Carbon Dioxide 23 (19-29) mEq/L BUN 19 (8-26) mg/dL Creatinine 0.76 (0.72-1.25) mg/dL Glucose 116 H (70-99) mg/dL Calcium 8.5 L (8.6-10.8) mg/dL AST 355 H (5-34) Units/L ALT 602 H (0-55) Units/L Alkaline Phosphatase 582 H (38-126) Units/L Albumin 3.2 L (3.5-5.0) g/dL Calcium panel 11/23/16 11/23/16 Range/Units 03:58 12:10 Calcium 8.5 L (8.6-10.8) mg/dL Albumin 3.2 L (3.5-5.0) g/dL Pituitary panel 11/23/16 Range/Units 03:58 Sodium 138 (136-145) mEq/L Potassium 4.5 (3.5-4.5) mEq/L Chloride 104 (98-109) mEq/L Carbon Dioxide 23 (19-29) mEq/L BUN 19 (8-26) mg/dL Creatinine 0.76 (0.72-1.25) mg/dL Glucose 116 H (70-99) mg/dL Calcium 8.5 L (8.6-10.8) mg/dL Adrenal panel 11/23/16 11/23/16 Range/Units 03:58 12:10 Sodium 138 (136-145) mEq/L Potassium 4.5 (3.5-4.5) mEq/L Chloride 104 (98-109) mEq/L Carbon Dioxide 23 (19-29) mEq/L BUN 19 (8-26) mg/dL Creatinine 0.76 (0.72-1.25) mg/dL Glucose 116 H (70-99) mg/dL Calcium 8.5 L (8.6-10.8) mg/dL Total Bilirubin 4.7 H D (0.2-1.2) mg/dL AST 355 H (5-34) Units/L ALT 602 H (0-55) Units/L Alkaline Phosphatase 582 H (38-126) Units/L Albumin 3.2 L (3.5-5.0) g/dL All other labs normal. - Imaging CT scan - abdomen: report reviewed CT scan - pelvis: report reviewed Additional studies: Chest X-Ray 11/22/16 19:58 IMPRESSION: 1. Low lung volumes. D/ / 11/22/2016 20:19:11 Ethan Cohen MD / eugene Interpreting Provider: Ethan Cohen MD Abdomen/Pelvis CT 11/23/16 10:00 IMPRESSION: Cholelithiasis, with calculus at the gallbladder neck. Fatty liver. Sequela of granulomatous disease. 6 mm indeterminate noncalcified right middle lobe pulmonary nodule, with follow-up recommendations as below. 8 mm isodense lesion is seen exophytic from the posterior margin of the left kidney. Some considerations include hyperdense cyst or small renal neoplasm. Comparison with any remote outside prior would be helpful to determine any interval change. Ultrasound could be considered for further characterization. Fleischner Society guidelines for follow-up and management of incidentally detected pulmonary nodules:Single Solid Nodule:Nodule size less than 6 mmIn a low-risk patient, no routine follow-up.In a high-risk patient, optional CT at 12 months. Nodule size equals 6-8 mmIn a low-risk patient, CT at 6-12 months, then consider CT at 18-24 months.In a high-risk patient, CT at 6-12 months, then CT at 18-24 months.Nodule size greater than 8 mmIn a low-risk patient, consider CT, PET/CT, or tissue sampling at 3 months.In a high-risk patient, consider CT, PET/CT, or tissue sampling at 3 months.Multiple Solid Nodules:Nodule size less than 6 mmIn a low-risk patient, no routine follow-up.In a high-risk patient, optional CT at 12 months. Nodule size equals 6-8 mmIn a low-risk patient, CT at 3-6 months, then consider CT at 18-24 months.In a high-risk patient, CT at 3-6 months, then CT at 18-24 months.Nodule size greater than 8 mmIn a low-risk patient, CT at 3-6 months, then consider CT at 18-24 months.In a high-risk patient, CT at 3-6 months, then CT at 18-24 months.- Low risk patients include individuals with minimal or absent history of smoking and other known risk factors.- High risk patients include individuals with a history or smoking or known risk factors.Radiology 2017 http://pubs.rsna.org/doi/full/10.1148/radiol.8617191597 D/ / Orlando Peter MD / Orlando Peter MD Interpreting Provider: Orlando Peter MD Consult Discharge Plan - Plan Referrals: Dennis Godwin MD [Primary Care Provider] - - Attending Attestation I examined this patient and my medical decision-making was reviewed with the RACK CARRIER/PA/Advanced Practice Nurse/Resident Physician. I agree with the documented findings, disposition and treatment plan as described except to the extent set forth below.
[2016-11-23] MEDS ORDERED: Fluticasone Propionate Nasal 50 MCG/SPRAY BOTTLE NS PRN (23:41)
[2016-11-24 04:55] LABS: Albumin 2.8 g/dL (3.5-5.0); Albumin/Globulin Ratio 0.8 (1.1-2.2); Bilirubin,Indirect 0.8 mg/dL (0.0-1.2); Globulin 3.4 g/dL (2.4-3.5); Total Protein 6.2 g/dL (6.0-8.3)
[2016-11-24 04:56] LABS: Bilirubin,Total 1.9 mg/dL (0.2-1.2)
[2016-11-24 04:57] LABS: Bilirubin,Direct 1.1 mg/dL (0.0-0.5)
[2016-11-24] MEDS ORDERED: *HR* HYDROcodone/Acet 5/325 mg TABLET PO PRN (07:43)
[2016-11-24] MEDS ORDERED: *HR* Morphine 2 MG/ML SYRINGE IVP PRN (07:43)
[2016-11-24] MEDS ORDERED: 0.9 % Sodium Chloride 1,000 ML IVC SCH (07:45)
--- NOTE | 2016-11-24 12:31 | Gastroenterology Consult Note ---
<Donavan Longo - Last Filed: 11/24/16 12:29> Date of Encounter: 11/24/16 Time of Encounter: 10:45 - Assessment and plan (1) Cholelithiasis Current Visit: Yes Status: Acute Assessment and plan: MRI with cholelithiasis 2 mm area of hypointense signal change seen in the region of the extrahepatic common duct. Recommend cholecystectomy with intraoperative cholangiogram. If IOC abnormal we will plan ERCP. Qualifiers: Cholelithiasis location: gallbladder Cholecystitis presence: with cholecystitis Cholecystitis acuity: acute and chronic Biliary obstruction: without biliary obstruction Qualified Code(s): K80.12 - Calculus of gallbladder with acute and chronic cholecystitis without obstruction (2) Epigastric pain Current Visit: Yes Status: Acute (3) Elevated liver function tests Current Visit: Yes Status: Acute Assessment and plan: Recommend cholecystitis with IOC, if abnormal plan for ERCP. Continue to monitor hepatic panel. - Time Spent With Patient Total time spent is greater than 50% in coordination of care (as documented) at patient's floor/unit and/or counseling patient: GI History of Present Illness - Data of Consult Patient: new to practice Consult date: 11/24/16 Requesting Physician: Sana Berger - Consult Narrative Reason for consult: Increased LFTs and bili History of present illness: Mr. Ron is a 61 year old male with PMHx of HTN who presented to the ED with sudden onset of epigastric pain with radiation to his chest. Caal progressively worsened over the day. He started Prilosec the day before admission due to increasing reflux symptoms. He denies fever, chills, nausea, vomiting, diarrhea , constipation, melena, or hematochezia. MRI with cholelithiasis 2 mm area of hypointense signal change seen in the region of the extrahepatic common duct. CT A/P with fatty liver. Procedures: Colonoscopy 10/19/2016 Dr. Benedicto valenzuela NSAIDs: None Anticoagulation: None Past Med Surg Social Fam HX - Past Medical History Medical history: hypertension Psychiatric history: no psych history - Past Surgical History Surgical History: orthopedic, other (finger surgery), other (colonoscopy 2006) - Social History Smoking Status: Never smoker Smokeless Tobacco Status: Yes Alcohol use: occasionally Drug use: none - Family History Father Living Status: Still Living Hx Family Cardiac Disorders: Yes (HTN) Hx Family Respiratory Disorders: No Hx Family Cancer: Yes (Prostate) Hx Family GI Disorders: No Hx Family Genitourinary Disorders: No Hx Family Endocrine Disorder: No Hx Family Musculoskeletal Disorders: No Hx Family Neuromuscular Disorders: No Hx Family Neurologic Disorders: No Hx Family HEENT Disorders: No Hx Family Autoimmune Disorders: No Hx Family Reproductive Disorders: No Hx Family Psychosocial Disorders: No Hx Family Medical Disorders: No Mother Living Status: Cause of : Cancer Hx Family Cardiac Disorders: Yes (HTN) Hx Family Respiratory Disorders: No Hx Family Cancer: Yes (Sarcoma) Hx Family GI Disorders: No Hx Family Genitourinary Disorders: No Hx Family Endocrine Disorder: Yes (thyroid) Hx Family Musculoskeletal Disorders: No Hx Family Neuromuscular Disorders: No Hx Family Neurologic Disorders: No Hx Family HEENT Disorders: No Hx Family Autoimmune Disorders: No Hx Family Reproductive Disorders: No Hx Family Psychosocial Disorders: No Hx Family Medical Disorders: No - Gastrointestinal Gastrointestinal: Present: as per HPI - Constitutional Constitutional: as per HPI - EENT Eyes: as per HPI Ears: Present: as per HPI Nose, mouth and throat: Present: as per HPI - Cardiovascular Cardiovascular ROS: Present: as per HPI - Respiratory Respiratory IM: Present: as per HPI - Genitourinary Genitourinary: Absent: change in color, Urinary frequency - Neurological ROS Neurological GI: Present: as per HPI - Hematologic/Lymphatic Hematologic/Lymphatic pediatric: Present: as per HPI - Musculoskeletal Musculoskeletal ROS GI: Present: as per HPI - Integumentary Integumentary GI: Present: as per HPI - Psychiatric ROS Psychiatric GI: Present: as per HPI - Endocrine Endocrine IM: Present: as per HPI - Constitutional Vitals: Temp Pulse Resp BP Pulse Ox 97.9 F 76 16 120/77 95 11/24/16 12:05 11/24/16 12:05 11/24/16 12:05 11/24/16 12:05 11/24/16 12:05 General appearance: Present: cooperative, A&O X 3, no acute distress, answers questions appropriately - Head Head exam: Present: atraumatic, normocephalic - Eye Eye exam: Present: normal appearance, sclera anicteric - ENT ENT exam: Present: mucous membranes dry - Neck Neck exam general surgery: Present: normal inspection, trachea midline - Respiratory Respiratory exam: Present: CTAB. Absent: rales, rhonchi, wheezes - Cardiovascular Cardiovascular exam: Present: RRR, +S1, +S2 - GI/Abdominal GI/Abdominal exam: Present: soft, tenderness (RUQ, midepigastric ), no peritoneal signs. Absent: distended, firm, guarding - Rectal Rectal exam: Present: deferred - Extremities Exam Extremities exam: Present: warm - Neurological Exam Neurological exam: Present: no focal deficits - Psychiatric Psychiatric exam: Present: normal affect, normal mood - Skin Skin exam: Present: dry, intact, normal color, warm Results - Labs CBC & Chem 7: 11/23/16 03:58 11/23/16 03:58 Labs: Last Result Calcium 8.5 mg/dL (8.6-10.8) L 11/23/16 03:58 Troponin I 0.01 ng/mL (0-0.03) 11/23/16 03:58 Entire Visit Hgb 13.4 g/dL (12.9-16.9) D 11/23/16 03:58 Hct 41.0 % (37.5-50.1) 11/23/16 03:58 PT 11.7 Seconds (9.4-12.1) 11/22/16 20:41 Total Bilirubin 1.9 mg/dL (0.2-1.2) H D 11/24/16 03:28 AST 195 Units/L (5-34) H 11/24/16 03:28 ALT 448 Units/L (0-55) H 11/24/16 03:28 Lipase 16 Units/L (8-78) 11/22/16 20:41 - ABG ABG results: PT/INR, D-dimer PT 11.7 Seconds (9.4-12.1) 11/22/16 20:41 - Impressions Impressions Abdomen MRI 11/23/16 15:06 IMPRESSION: There is a tiny 2 mm area of hypointense signal change seen in region of the extrahepatic common duct, near the duct insertion. This is only seen on the MIP images. This likely corresponds to a small calcification seen on axial image [address] scan. Given the respiratory motion, It is difficult to determine if this is either in the common duct, representing a nonobstructing stone, or indicative of a small adjacent calcification, as it is only seen on the MIP image. Cholelithiasis. No cholecystitis. D/ / Grayson Dutton MD / Grayson Dutton MD Interpreting Provider: Grayson Dutton MD Consult Discharge Plan - Plan Referrals: Dennis Godwin MD [Primary Care Provider] - <Jeramy Mckeon - Last Filed: 11/24/16 17:51> Time of Encounter: 13:00 - Time Spent With Patient Total time spent is greater than 50% in coordination of care (as documented) at patient's floor/unit and/or counseling patient: GI History of Present Illness - Data of Consult Requesting Physician: Sana Berger - Consult Narrative History of present illness: Mr. Ron is a 61 year old male - Constitutional Vitals: Temp Pulse Resp BP Pulse Ox 98.1 F 74 12 146/80 94 L 11/24/16 15:09 11/24/16 15:09 11/24/16 15:09 11/24/16 15:09 11/24/16 15:09 Results - Labs CBC & Chem 7: 11/23/16 03:58 11/23/16 03:58 Labs: Last Result Calcium 8.5 mg/dL (8.6-10.8) L 11/23/16 03:58 Troponin I 0.01 ng/mL (0-0.03) 11/23/16 03:58 Entire Visit Hgb 13.4 g/dL (12.9-16.9) D 11/23/16 03:58 Hct 41.0 % (37.5-50.1) 11/23/16 03:58 PT 11.7 Seconds (9.4-12.1) 11/22/16 20:41 Total Bilirubin 1.9 mg/dL (0.2-1.2) H D 11/24/16 03:28 AST 195 Units/L (5-34) H 11/24/16 03:28 ALT 448 Units/L (0-55) H 11/24/16 03:28 Lipase 16 Units/L (8-78) 11/22/16 20:41 - ABG ABG results: PT/INR, D-dimer PT 11.7 Seconds (9.4-12.1) 11/22/16 20:41 - Attending Attestation I examined this patient and my medical decision-making was reviewed with the DISEASE CASE MANAGER/PA/Advanced Practice Nurse/Resident Physician. I agree with the documented findings, disposition and treatment plan as described except to the extent set forth below.
--- NOTE | 2016-11-24 15:30 | Internal Med Progress Note ---
Date of Encounter: 11/24/16 Time of Encounter: 14:00 - Assessment and plan (1) Chest pain Current Visit: Yes Status: Ruled-out Assessment and plan: Patient has denied chest pain since admission. Upon further discussion with the patient, his pain is located right upper quadrant and epigastric area. Troponins negative. Chest x-ray negative. Stress test negative. Acute coronary syndrome ruled out. ITS Impressions Chest X-Ray 11/22/16 19:58 IMPRESSION: 1. Low lung volumes. D/ / 11/22/2016 20:19:11 Ethan Cohen MD / eugene Interpreting Provider: Ethan Cohen MD Nuclear stress test impression: Exercise ECG is negative for ischemia. Exercise capacity was excellent. Patient had no chest pain during stress. Gated ejection fraction of 74%. Perfusion imaging was negative for ischemia or infarct. Qualifiers: Chest pain type: precordial pain Qualified Code(s): R07.2 - Precordial pain (2) Epigastric pain Current Visit: Yes Status: Acute Assessment and plan: Patient continues to deny pain or nausea. Abdominal pelvic CT revealing cholelithiasis with calculus of gallbladder neck. Elevated liver enzymes as well as elevated bili with repeat labs trending down. Initially, GI was brought on board who recommended surgical consult. GI then recommended an MRCP which revealed 2 mm area of hypodense signal change in the extrahepatic common duct. GI has recommended cholecystectomy with intraoperative cholangiogram. If intraoperative cholangiogram is abnormal, ERCP will be performed tomorrow. Plan is for cholecystectomy per surgery Dr. Elzbieta john today. ITS Impressions Abdomen/Pelvis CT 11/23/16 10:00 IMPRESSION: Cholelithiasis, with calculus at the gallbladder neck. Fatty liver. Sequela of granulomatous disease. 6 mm indeterminate noncalcified right middle lobe pulmonary nodule, with follow-up recommendations as below. 8 mm isodense lesion is seen exophytic from the posterior margin of the left kidney. Some considerations include hyperdense cyst or small renal neoplasm. Comparison with any remote outside prior would be helpful to determine any interval change. Ultrasound could be considered for further characterization. Fleischner Society guidelines for follow-up and management of incidentally detected pulmonary nodules:Single Solid Nodule:Nodule size less than 6 mmIn a low-risk patient, no routine follow-up.In a high-risk patient, optional CT at 12 months. Nodule size equals 6-8 mmIn a low-risk patient, CT at 6-12 months, then consider CT at 18-24 months.In a high-risk patient, CT at 6-12 months, then CT at 18-24 months.Nodule size greater than 8 mmIn a low-risk patient, consider CT, PET/CT, or tissue sampling at 3 months.In a high-risk patient, consider CT, PET/CT, or tissue sampling at 3 months.Multiple Solid Nodules:Nodule size less than 6 mmIn a low-risk patient, no routine follow-up.In a high-risk patient, optional CT at 12 months. Nodule size equals 6-8 mmIn a low-risk patient, CT at 3-6 months, then consider CT at 18-24 months.In a high-risk patient, CT at 3-6 months, then CT at 18-24 months.Nodule size greater than 8 mmIn a low-risk patient, CT at 3-6 months, then consider CT at 18-24 months.In a high-risk patient, CT at 3-6 months, then CT at 18-24 months.- Low risk patients include individuals with minimal or absent history of smoking and other known risk factors.- High risk patients include individuals with a history or smoking or known risk factors.Radiology 2017 http://pubs.rsna.org/doi/full/10.1148/radiol.8714583076 D/ / Orlando Peter MD / Orlando Peter MD Interpreting Provider: Orlando Peter MD (3) Cholelithiasis Current Visit: Yes Status: Acute (4) Transaminitis Current Visit: Yes Status: Acute (5) Elevated bilirubin Current Visit: Yes Status: Acute (6) Hypertension Current Visit: Yes Status: Chronic Assessment and plan: Controlled, home lisinopril/HCTZ continued (7) DVT prophylaxis Current Visit: Yes Status: Acute Assessment and plan: Up ad giulia. currently observation patient. - Subjective Interval history: Patient seen and examined. On examination, patient is sitting upright in his chair conversing with his and son. He denies pain or shortness of breath at this time. He denies concerns regarding his upcoming procedure. - Constitutional Vitals: Temp Pulse Resp BP Pulse Ox 98.1 F 74 12 146/80 94 L 11/24/16 15:09 11/24/16 15:09 11/24/16 15:09 11/24/16 15:09 11/24/16 15:09 General appearance: Present: A&O X 3, pleasant, no acute distress, answers questions appropriately - Head Head exam: Present: atraumatic, normocephalic - Eye Eye exam: Present: PERRL, conjuntiva pink, sclera anicteric Pupils: Present: PERRL - Neck Neck exam general surgery: Present: supple, trachea midline. Absent: lymphadenopathy - Respiratory Respiratory exam: Present: CTAB. Absent: accessory muscle use, rales, respiratory distress, rhonchi, wheezes - Cardiovascular Cardiovascular exam: Present: RRR, +S1, +S2. Absent: diastolic murmur, gallop, rubs, systolic murmur - GI/Abdominal GI/Abdominal exam: Present: normal bowel sounds, soft, no peritoneal signs. Absent: distended, tenderness - Extremities Exam Extremities exam: Present: warm, radial pulses palpable and symetrical. Absent : calf tenderness, cyanotic, pedal edema - Neurological Exam Neurological exam: Present: alert, CN II-XII intact, oriented X3, no focal deficits, strengths equal and symetr throughout. Absent: pronater drift, facial droop, speech deficit - Skin Skin exam: Present: dry, intact, normal color, warm Internal Medicine: Result - Labs CBC & Chem 7: 11/23/16 03:58 11/23/16 03:58 Labs: Liver Function 11/24/16 Range/Units 03:28 Total Bilirubin 1.9 H D (0.2-1.2) mg/dL Direct Bilirubin 1.1 H D (0.0-0.5) mg/dL AST 195 H (5-34) Units/L ALT 448 H (0-55) Units/L Alkaline Phosphatase 472 H (38-126) Units/L Albumin 2.8 L (3.5-5.0) g/dL - ABG Interpretation ABG results: PT/INR, D-dimer PT 11.7 Seconds (9.4-12.1) 11/22/16 20:41 - Impressions Impressions Abdomen MRI 11/23/16 15:06 IMPRESSION: There is a tiny 2 mm area of hypointense signal change seen in region of the extrahepatic common duct, near the duct insertion. This is only seen on the MIP images. This likely corresponds to a small calcification seen on axial image [address] scan. Given the respiratory motion, It is difficult to determine if this is either in the common duct, representing a nonobstructing stone, or indicative of a small adjacent calcification, as it is only seen on the MIP image. Cholelithiasis. No cholecystitis. D/ / Grayson Dutton MD / Grayson Dutton MD Interpreting Provider: Grayson Dutton MD Consult Discharge Plan - Plan Referrals: Dennis Godwin MD [Primary Care Provider] -
--- NOTE | 2016-11-24 16:15 | Electrocardiograph Report ---
[address] [place] [address] Test Date: 2016-11-22 Pat Name: Rafael Ron Department: 102 Room: 3B12 Gender: M Pointer Helper: Roger : 1955 Requested By: Alexi Sneed Order Number: [id number] Reading MD: Dane Zamorano MD Measurements Intervals Dexter Rate: 96 P: 70 OR: 159 QRS: -36 QRSD: 106 T: 27 QT: 348 QTc: 401 Interpretive Statements SINUS RHYTHM MARKED LEFT AXIS DEVIATION POSSIBLE LATERAL MYOCARDIAL INFARCTION, OF INDETERMINATE AGE Electronically Signed On 11-24-2016 16:13:15 EDT by Dane Zamorano MD
--- NOTE | 2016-11-24 18:40 | Anesthesia Evaluation PreOp ---
<Shereen Carson - Last Filed: 11/24/16 18:36> Date of Encounter: 11/24/16 Time of Encounter: 18:36 - Past History Planned Operation: Lap Fanny Cardiac History: HTN (maintained on Lisinopril-Hctz), Other (11/23/16 - LVEF 65% . Moderately dilated LA. Moderate diastolic dysfx. No PulmHtn, No SWMA) Pulmonary History: Denies Any Significant HX PRESS PULLER History: Denies Any Significant HX Other Medical History: Denies Any Significant HX Anesthesia History: No Prior Anesthetic Complications, Past Anesthesia ( Orthopedic/Finger surgery) Alcohol Use: occasionally Drug use: none Medications and Allergies Calcium Carbonate/Vitamin D3 [Calcium 600-Vit D3 400 Tablet] 1 tab PO BID [History] Fluticasone Propionate Nasal [Flonase] 1 spray NS DAILY 10/19/16 [History] Glucosamine HCl/Chondr Florez A Na [Cvs Glucosamine-Chondr Tablet] 1 tab PO BID [History] Lisinopril/Hydrochlorothiazide [Zestoretic 10-12.5 mg Tablet] 1 tab PO DAILY [History] Sildenafil Citrate [Viagra] 50 - 100 mg PO DAILY PRN 10/19/16 [History] Allergies No Known Allergies Allergy (Verified 11/22/16 19:49) - Meds/Allergy Pre-op Review Medications Reviewed: Yes Allergies Reviewed: Yes Beta Blockers on Current Med List: No Anesthesia Results - Labs 11/23/16 03:58 11/23/16 03:58 Laboratory Results Impressions Chest X-Ray 11/22/16 19:58 IMPRESSION: 1. Low lung volumes. D/ / 11/22/2016 20:19:11 Ethan Cohen MD / eugene Interpreting Provider: Ethan Cohen MD Abdomen/Pelvis CT 11/23/16 10:00 IMPRESSION: Cholelithiasis, with calculus at the gallbladder neck. Fatty liver. Sequela of granulomatous disease. 6 mm indeterminate noncalcified right middle lobe pulmonary nodule, with follow-up recommendations as below. 8 mm isodense lesion is seen exophytic from the posterior margin of the left kidney. Some considerations include hyperdense cyst or small renal neoplasm. Comparison with any remote outside prior would be helpful to determine any interval change. Ultrasound could be considered for further characterization. Fleischner Society guidelines for follow-up and management of incidentally detected pulmonary nodules:Single Solid Nodule:Nodule size less than 6 mmIn a low-risk patient, no routine follow-up.In a high-risk patient, optional CT at 12 months. Nodule size equals 6-8 mmIn a low-risk patient, CT at 6-12 months, then consider CT at 18-24 months.In a high-risk patient, CT at 6-12 months, then CT at 18-24 months.Nodule size greater than 8 mmIn a low-risk patient, consider CT, PET/CT, or tissue sampling at 3 months.In a high-risk patient, consider CT, PET/CT, or tissue sampling at 3 months.Multiple Solid Nodules:Nodule size less than 6 mmIn a low-risk patient, no routine follow-up.In a high-risk patient, optional CT at 12 months. Nodule size equals 6-8 mmIn a low-risk patient, CT at 3-6 months, then consider CT at 18-24 months.In a high-risk patient, CT at 3-6 months, then CT at 18-24 months.Nodule size greater than 8 mmIn a low-risk patient, CT at 3-6 months, then consider CT at 18-24 months.In a high-risk patient, CT at 3-6 months, then CT at 18-24 months.- Low risk patients include individuals with minimal or absent history of smoking and other known risk factors.- High risk patients include individuals with a history or smoking or known risk factors.Radiology 2017 http://pubs.rsna.org/doi/full/10.1148/radiol.1415964435 D/ / Orlando Peter MD / Orlando Peter MD Interpreting Provider: Orlando Peter MD Abdomen MRI 11/23/16 15:06 IMPRESSION: There is a tiny 2 mm area of hypointense signal change seen in region of the extrahepatic common duct, near the duct insertion. This is only seen on the MIP images. This likely corresponds to a small calcification seen on axial image [address] scan. Given the respiratory motion, It is difficult to determine if this is either in the common duct, representing a nonobstructing stone, or indicative of a small adjacent calcification, as it is only seen on the MIP image. Cholelithiasis. No cholecystitis. D/ / Grayson Dutton MD / Grayson Dutton MD Interpreting Provider: Grayson Dutton MD - Imaging EKG: image reviewed (96bpm SR, marked LAD, possible lateral DC of indeterminate age) Anesthesia Exam Vital Signs Temp Pulse Resp BP Pulse Ox 11/24/16 15:09 98.1 F 74 12 146/80 94 L 11/24/16 12:05 97.9 F 76 16 120/77 95 11/24/16 06:57 97.9 F 57 14 131/82 97 11/24/16 03:29 97.9 F 59 16 147/89 96 11/23/16 23:38 98.1 F 93 16 137/72 93 L 11/23/16 18:50 98.0 F 67 16 138/83 98 Intake and Output 11/24/16 11/24/16 11/24/16 07:59 15:59 23:59 Output Total 1100 / 1100 800 / 800 Balance -1100 / -1100 -800 / -800 Output: Urine 1100 / 1100 800 / 800 Other: Meal NPO for lunch Weight 95.481 kg Patient Weight 11/24/16 23:59 Weight 95.481 kg Height: 5'11" Weight: 210# BMI = 29 NPO (# of Hours): MNoc - HEENT Pupil (Motor): Pupils equal Mallampati: I Teeth: Normal - PRESS PULLER LOC: Oriented PRESS PULLER Motor: Normal RUE, Normal LUE, Normal RLE, Normal LLE, Normal Face PRESS PULLER Sensory: Normal: RUE, LUE, RLE, LLE, Face - Cardiac Rhythm: Regular Murmur: None JVD: No - Pulmonary Breath Sounds: bilateral Clear Respiratory Effort: Symmetrical Anesthesia Assess/Plan ASA Score: 3 Modified Aj Scale for Level of Consciousness: Cooperative, oriented, and tranquil Anesthetic Plan: General Monitoring Plan: Standard Monitors Recovery Plan: PACU <Lebron Rose - Last Filed: 11/24/16 21:50> - Past History Pulmonary History: Snore Other Medical History: Hepatic (fatty liver) Anesthesia Results - Labs 11/23/16 03:58 11/23/16 03:58
--- NOTE | 2016-11-24 20:56 | Operative Note ---
Date of procedure: 11/24/16 Pre-op diagnosis: cholecystitis Post-op diagnosis: same Procedure: Laparoscopic Cholecectomy with Cholangiogram Anesthesia: CAMRON Surgeon: Gene Ruff Estimated blood loss (cc): 5 Specimen: GB Condition: stable Disposition: same day Procedure in Detail: After informed consent this patient was taken the operating room placed supine position. After adequate sedation anesthesia the abdomen was prepped and draped. A proper timeout was performed. Two towel clamps are placed at the umbilicus and a Veres needle was inserted into the abdomen. A 5 mm incision was made at the umbilicus. A 12 mm incision was made in the subxiphoid region. Two 5 mm incisions were made in the right upper quadrant that were 4 finger breadths and 6 finger breadths below the costal margin. The gallbladder was identified, retracted anteriorly and cephalad, and the infundibulum was skeletonized. The cystic duct was easily identified and was dissected free. A ductotomy was created in the cystic duct. A taut catheter was placed within the cystic duct and clipped. A cholangiogram was performed. Contrast filled the cystic duct, common hepatic duct, hepatic radicles, and the distal common bile duct. There was flow of contrast into the duodenum. Once this was confirmed the clippers removed, the taut catheter was removed as well, and the cystic duct was clipped distally. The cystic duct was then transected with scissors. The gallbladder was resected off the liver surface. There was excellent hemostasis. The gallbladder was then retrieved through the 12 mm cannula site. At this point the abdomen was suctioned dry and the pneumoperitoneum was then evacuated. All ports were removed. The 12 mm cannula site was closed with an 0 Vicryl suture in [id number] fashion. The skin was closed with 4-0 Vicryl suture. Dermabond was placed as well. All instrument counts and needle counts are correct in the operation. The patient tolerated the procedure well and was transferred to the PACU in stable condition.
[2016-11-24] MEDS ORDERED: *HR* HYDROmorphone (PF) 1 MG/ML SYRINGE IVP PRN (21:50)
[2016-11-24] MEDS ORDERED: Lidocaine -MPF 2% 2 ML VIAL ONE (21:55)
[2016-11-24] MEDS ORDERED: *HR* FentaNYL (PF) 100 MCG/2 ML VIAL ONE (21:55)
[2016-11-24] MEDS ORDERED: *HR* Propofol 200 MG/20 ML VIAL IVP ONE (21:55)
[2016-11-24] MEDS ORDERED: *HR* Rocuronium Bromide 50 MG/5 ML VIAL ONE (21:55)
[2016-11-24] MEDS ORDERED: *HR* Midazolam HCl 2 MG/2 ML VIAL ONE (21:55)
[2016-11-24] MEDS ORDERED: Neostigmine Methylsulfate 3 MG/3 ML SYRINGE ONE (22:07)
[2016-11-24] MEDS ORDERED: *HR* Morphine 10 MG/ML VIAL ONE (22:17)
[2016-11-24] MEDS ORDERED: Ondansetron 4 MG/2 ML VIAL ONE (22:19)
[2016-11-24] MEDS ORDERED: Dexamethasone 4 MG/ML VIAL ONE (22:26)
[2016-11-24 23:07] LABS: Hepatitis B Surface Antigen Nonreactive (Nonreactive)
[2016-11-25] MEDS ORDERED: Naloxone 0.4 MG/ML INJ IVP PRN (00:08)
[2016-11-25] MEDS ORDERED: *HR* HYDROmorphone (PF) 1 MG/ML SYRINGE IVP PRN (00:08)
[2016-11-25] MEDS ORDERED: Fluticasone Propionate Nasal 50 MCG/SPRAY BOTTLE NS PRN (00:08)
[2016-11-25] MEDS ORDERED: 0.9 % Sodium Chloride 1,000 ML IVC SCH (00:08)
[2016-11-25] MEDS ORDERED: *HR* Morphine 2 MG/ML SYRINGE IVP PRN (00:08)
--- NOTE | 2016-11-25 00:36 | Anesthesia Evaluation Post Op ---
Date of Encounter: 11/25/16 Time of Encounter: 00:36 - Vital Signs Vital Signs: Vital Signs/O2 Sat, Most Current Temp Pulse Resp BP Pulse Ox 98.5 F 64 16 132/78 98 11/24/16 23:48 11/25/16 00:34 11/25/16 00:34 11/25/16 00:34 11/25/16 00:34 - Lungs Lungs: Clear Ascult./Percussion - Airway Airway: Non-obstructed - Cardiovascular Regular Rate - Mental Status Mental Status: Alert & Oriented, Answers Appropriately - Pain Pain Scale: 5 Pain Scale used: Numeric (1 - 10) - Nausea Vomiting Nausea Vomiting: Not Present - Hydration Hydration: Ice chips, Has not voided
[2016-11-25] MEDS: *HR* HYDROcodone/Acet 5/325 mg TABLET PO PRN ×3 (01:11→13:51)
[2016-11-25 03:05] LABS: BUN/Creatinine Ratio 24 (6-26); Blood Urea Nitrogen 20 mg/dL (8-26); Calcium 9.1 mg/dL (8.6-10.8); Carbon Dioxide 21 mEq/L (19-29); Chloride 105 mEq/L (98-109); Glucose 91 mg/dL (70-99); Osmolality,Calculated 290 (280-300); Potassium 4.3 mEq/L (3.5-4.5); Sodium 139 mEq/L (136-145); eGFR For African Americans > 60 (> 60); eGFR For Non-African Americans > 60 (> 60)
[2016-11-25 12:31] LABS: Hepatitis A Antibody IgM Nonreactive (Nonreactive); Hepatitis B Core IgM Nonreactive (Nonreactive); Hepatitis C Virus Antibody Nonreactive (Nonreactive)
--- NOTE | 2016-11-25 13:10 | General Surgery Progress Note ---
Date of Encounter: 11/25/16 Time of Encounter: 13:00 - Assessment and Plan (1) Cholelithiasis Current Visit: Yes Status: Acute POD #1 laparoscopic cholecystectomy with cholangiogram Advance to regular diet as tolerated IS every 1 hour while awake Increase activity as tolerated Supportive care/pain control Qualifiers: Cholelithiasis location: gallbladder Cholecystitis presence: with cholecystitis Cholecystitis acuity: acute and chronic Biliary obstruction: without biliary obstruction Qualified Code(s): K80.12 - Calculus of gallbladder with acute and chronic cholecystitis without obstruction (2) Elevated liver function tests Current Visit: Yes Status: Acute Improved Subjective Patient reports: no new complaints, feels better, still having pain (post- surgical pain), tolerating liquids well, voiding w/o difficulty, no flatus, no bowel movement, afebrile Objective Vital Signs - Last 8 Hours Temp Pulse Resp BP Pulse Ox 11/25/16 11:41 97.4 F L 77 18 116/70 94 L 11/25/16 06:26 97.9 F 71 16 137/76 97 Intake and Output 11/24/16 11/25/16 11/25/16 23:59 07:59 15:59 Intake Total 600 / 600 Output Total 250 / 250 Balance 350 / 350 Intake: Oral 600 / 600 Output: Urine 250 / 250 Other: # Voids 1 - General physical appearance well developed, well nourished, no distress - Eyes normal ocular movement - ENT normal mucosa, atraumatic, normocephalic - Neck Neck exam: trachea midline - Respiratory normal respiratory effort, clear to auscultation - Cardiovascular Cardiovascular exam: Present: RRR - Abdomen Abdomen: Present: bowel sounds present, soft, tender (expected post-operative tenderness) - Incision Incision: Present: clean and dry, intact - Neurologic CN 2-12 grossly intact - Musculoskeletal normal gait, normal posture - Psychiatric oriented to time, oriented to person, oriented to place, speech is normal, memory intact - Labs 11/23/16 03:58 11/25/16 02:43 Diabetes panel 11/25/16 Range/Units 02:43 Sodium 139 (136-145) mEq/L Potassium 4.3 (3.5-4.5) mEq/L Chloride 105 (98-109) mEq/L Carbon Dioxide 21 (19-29) mEq/L BUN 20 (8-26) mg/dL Creatinine 0.85 (0.72-1.25) mg/dL Glucose 91 (70-99) mg/dL Calcium 9.1 (8.6-10.8) mg/dL Calcium panel 11/25/16 Range/Units 02:43 Calcium 9.1 (8.6-10.8) mg/dL Pituitary panel 11/25/16 Range/Units 02:43 Sodium 139 (136-145) mEq/L Potassium 4.3 (3.5-4.5) mEq/L Chloride 105 (98-109) mEq/L Carbon Dioxide 21 (19-29) mEq/L BUN 20 (8-26) mg/dL Creatinine 0.85 (0.72-1.25) mg/dL Glucose 91 (70-99) mg/dL Calcium 9.1 (8.6-10.8) mg/dL Adrenal panel 11/25/16 Range/Units 02:43 Sodium 139 (136-145) mEq/L Potassium 4.3 (3.5-4.5) mEq/L Chloride 105 (98-109) mEq/L Carbon Dioxide 21 (19-29) mEq/L BUN 20 (8-26) mg/dL Creatinine 0.85 (0.72-1.25) mg/dL Glucose 91 (70-99) mg/dL Calcium 9.1 (8.6-10.8) mg/dL Consult Discharge Plan - Plan Additional Instructions: Surgical instructions: #1 May shower, no tub bath X 2 weeks #2 Wash incisions with soap and water and pat dry daily #3 No lifting/pushing/pulling greater than 15 lb. for a total of 2 weeks from the date of surgery #4 No driving until off narcotics for 24 hours and able to safely react in the car #5 May climb stairs Referrals: Dennis Godwin MD [Primary Care Provider] - Gayle Mora CNP [Advanced Practice Nurse] - 12/08/16 10:45 am (surgery follow-up) Prescriptions: OxyCODONE/APAP 5/325 [Percocet 5/325 MG] 1 each PO Q6HR PRN #30 tablet PRN Reason: Pain Docusate [Colace] 100 mg PO BID #30 capsule Ibuprofen 800 mg PO Q8H PRN #40 tablet PRN Reason: Pain - Attending Attestation I examined this patient and my medical decision-making was reviewed with the PAPER [employer] SUPERVISOR/PA/Advanced Practice Nurse/Resident Physician. I agree with the documented findings, disposition and treatment plan as described except to the extent set forth below.
[2016-11-25 14:37] LABS: AFP Tumor Marker Non-Pregnant 2 ng/mL (0-9); Ceruloplasmin 36 mg/dL (17-54)
[2016-11-25 14:57] VITALS: BP 121/74
--- NOTE | 2016-11-25 16:00 | Discharge Summary ---
Date of Encounter: 11/25/16 Time of Encounter: 15:00 - Discharge Diagnosis (1) Chest pain Priority: Primary Status: Ruled-out Comments: Patient has denied chest pain since admission. Upon further discussion with the patient, his pain is located right upper quadrant and epigastric area. Troponins negative. Chest x-ray negative. Stress test negative. Acute coronary syndrome ruled out. Qualifiers: Chest pain type: precordial pain Qualified Code(s): R07.2 - Precordial pain (2) Epigastric pain Priority: Primary Status: Acute Comments: Status post laparoscopic cholecystectomy yesterday. Patient's pain is controlled with pain medication. Cleared for discharge per surgery. (3) Cholelithiasis Priority: Primary Status: Resolved (4) Transaminitis Priority: Primary Status: Acute Comments: Trended down prior to surgery. (5) Elevated bilirubin Priority: Primary Status: Acute Comments: Also trended down prior to surgery. (6) Hypertension Priority: Secondary Status: Chronic Comments: Controlled with his home medications, follow-up outpatient (7) DVT prophylaxis Priority: Primary Status: Acute Comments: Up ad giulia., observation patient - Discharge Medications Prescriptions: OxyCODONE/APAP 5/325 [Percocet 5/325 MG] 1 each PO Q6HR PRN #30 tablet PRN Reason: Pain Docusate [Colace] 100 mg PO BID #30 capsule Ibuprofen 800 mg PO Q8H PRN #40 tablet PRN Reason: Pain Home Medications: Calcium Carbonate/Vitamin D3 [Calcium 600-Vit D3 400 Tablet] 1 tab PO BID [History] Fluticasone Propionate Nasal [Flonase] 1 spray NS DAILY 10/19/16 [History] Glucosamine HCl/Chondr Florez A Na [Cvs Glucosamine-Chondr Tablet] 1 tab PO BID [History] Lisinopril/Hydrochlorothiazide [Zestoretic 10-12.5 mg Tablet] 1 tab PO DAILY [History] Sildenafil Citrate [Viagra] 50 - 100 mg PO DAILY PRN 10/19/16 [History] Docusate [Colace] 100 mg PO BID #30 capsule 11/25/16 [Rx] Ibuprofen 800 mg PO Q8H PRN #40 tablet 11/25/16 [Rx] OxyCODONE/APAP 5/325 [Percocet 5/325 MG] 1 each PO Q6HR PRN #30 tablet 11/25/16 [Rx] Allergies/Adverse Reactions: Allergies No Known Allergies Allergy (Verified 11/22/16 19:49) Procedures/tests Complete & Pending: Procedures Performed prior 72 hours Category Date Time Status CT abd pelvis w iv no oral [CT] Routine Cat Scan 11/23/16 10:00 Completed NM vinnie perf SPECT multi [NM] Routine Exams 11/22/16 23:34 Taken MRCP [MR abdomen wo con] [MR] Routine MRI 11/23/16 15:06 Completed EV echocardiogram Routine Y 11/23/16 23:34 Completed SP exercise nuclear stress Routine Y 11/23/16 07:45 Completed Date of admission: 11/22/16 22:44 Primary care physician: Dennis Godwin MD Consults: 11/23/16 10:40 Consult to Gastroenterology [CONS] Routine Consulting Provider: Gastroenterology Jaci Reason for Consult: elevated lft's and bili- abd ct shows cholelithiasis with calculus at GB neck. CC: RUQ/epigastric pain Time Notified: 10:41 Call Completed: Yes 11/23/16 11:04 Consult to Surgery [CONS] Routine Consulting Provider: Gene Ruff Reason for Consult: RUQ/epig abd pain- elevated lft's and bili. CT shows cholelithaisis with calculus at GB neck Time Notified: 11:30 Call Completed: Yes Discharging clinician: Sana Olvera Anticipated date of discharge: 11/25/16 - Patient Status Disposition: Home, Self-Care Condition: Fair Functional capacity at discharge: independent ambulation Overall status at discharge: patient is progressing back to baseline - Discharge Instructions Instructions: Ibuprofen (By mouth), Oxycodone/Acetaminophen (By mouth), Laxative, Stool Softeners (By mouth), Laparoscopic Cholecystectomy (DC) Follow Up With: Gayle Mora CNP [Advanced Practice Nurse] - 12/08/16 10:45 am (surgery follow-up) Dennis Godwin MD [Primary Care Provider] - Additional Instructions: Surgical instructions: #1 May shower, no tub bath X 2 weeks #2 Wash incisions with soap and water and pat dry daily #3 No lifting/pushing/pulling greater than 15 lb. for a total of 2 weeks from the date of surgery #4 No driving until off narcotics for 24 hours and able to safely react in the car #5 May climb stairs - Diet and Activity Activity: increase activity as tolerated Diet: low salt diet Hospital course: Mr. Ron is a 61 year old male with only past medical history hypertension. He presented to emergency room chief complaint epigastric and chest pain. Patient stating he was working on remodeling his basement when he started to have pain in his epigastric area and every time he leaned over he felt as if his food was coming up. Patient stating the pain continued to worsen so he had to stop working and he also felt short of breath and the pain radiated throughout his chest and was worsened with deep breaths. Pain eventually went away and he fell asleep but woke up and the pain and shortness of breath was gone. Workup in the emergency department unremarkable. Chest x-ray negative. Patient was admitted to the hospitalist service for further evaluation and management. Initially, cardiac etiologies were ruled out with a negative troponin, negative stress test, and unremarkable echocardiogram. Upon further discussion with the patient, his right upper quadrant and epigastric area where the source of his pain and he was noted to have elevated LFTs and bilirubin levels. GI and surgery were brought on board. Abdominal CT revealing cholelithiasis with calculus at the gallbladder neck. Of note, abdominal CT also revealed a pulmonary nodule, recommend follow-up outpatient. Abdominal CT also revealed a cyst to his left kidney, also follow-up outpatient. GI performed an MRCP and recommended surgery proceeding with the cholecystectomy. Patient had a laparoscopic cholecystectomy with cholangiogram per Dr. Ruff without complications. He was observed overnight and discharged the next day with his pain controlled. His transaminitis and elevated bilirubin levels trended down prior to surgery. He was discharged home in stable condition with close outpatient follow-up recommended. ITS Impressions Chest X-Ray 11/22/16 19:58 IMPRESSION: 1. Low lung volumes. D/ / 11/22/2016 20:19:11 Ethan Cohen MD / eugene Interpreting Provider: Ethan Cohen MD Exercise Nuclear stress test impression: Exercise ECG is negative for ischemia. Exercise capacity was excellent. Patient had no chest pain during stress. Gated ejection fraction of 74%. Perfusion imaging was negative for ischemia or infarct. Echocardiogram impressions: LVEF 65%. Normal LV chamber size, wall thickness and function. Moderate left ventricular diastolic dysfunction. Normal right ventricular structure and function. Moderately dilated left atrium. No evidence of pulmonary hypertension. No significant valvular dysfunction. Abdomen/Pelvis CT 11/23/16 10:00 IMPRESSION: Cholelithiasis, with calculus at the gallbladder neck. Fatty liver. Sequela of granulomatous disease. 6 mm indeterminate noncalcified right middle lobe pulmonary nodule, with follow-up recommendations as below. 8 mm isodense lesion is seen exophytic from the posterior margin of the left kidney. Some considerations include hyperdense cyst or small renal neoplasm. Comparison with any remote outside prior would be helpful to determine any interval change. Ultrasound could be considered for further characterization. Fleischner Society guidelines for follow-up and management of incidentally detected pulmonary nodules:Single Solid Nodule:Nodule size less than 6 mmIn a low-risk patient, no routine follow-up.In a high-risk patient, optional CT at 12 months. Nodule size equals 6-8 mmIn a low-risk patient, CT at 6-12 months, then consider CT at 18-24 months.In a high-risk patient, CT at 6-12 months, then CT at 18-24 months.Nodule size greater than 8 mmIn a low-risk patient, consider CT, PET/CT, or tissue sampling at 3 months.In a high-risk patient, consider CT, PET/CT, or tissue sampling at 3 months.Multiple Solid Nodules:Nodule size less than 6 mmIn a low-risk patient, no routine follow-up.In a high-risk patient, optional CT at 12 months. Nodule size equals 6-8 mmIn a low-risk patient, CT at 3-6 months, then consider CT at 18-24 months.In a high-risk patient, CT at 3-6 months, then CT at 18-24 months.Nodule size greater than 8 mmIn a low-risk patient, CT at 3-6 months, then consider CT at 18-24 months.In a high-risk patient, CT at 3-6 months, then CT at 18-24 months.- Low risk patients include individuals with minimal or absent history of smoking and other known risk factors.- High risk patients include individuals with a history or smoking or known risk factors.Radiology 2017 http://pubs.rsna.org/doi/full/10.1148/radiol.[email or web address] D/ / Orlando Peter MD / Orlando Peter MD Interpreting Provider: Orlando Peter MD Abdomen MRI 11/23/16 15:06 IMPRESSION: There is a tiny 2 mm area of hypointense signal change seen in region of the extrahepatic common duct, near the duct insertion. This is only seen on the MIP images. This likely corresponds to a small calcification seen on axial image [address] scan. Given the respiratory motion, It is difficult to determine if this is either in the common duct, representing a nonobstructing stone, or indicative of a small adjacent calcification, as it is only seen on the MIP image. Cholelithiasis. No cholecystitis. D/ / Grayson Dutton MD / Grayson Dutton MD Interpreting Provider: Grayson Dutton MD - Time Spent with Patient Total time spent providing and/or coordinating discharge services: - Constitutional Vitals: Temp Pulse Resp BP Pulse Ox 98.1 F 71 16 121/74 95 11/25/16 14:56 11/25/16 14:56 11/25/16 14:56 11/25/16 14:56 11/25/16 14:56 General appearance: Present: A&O X 3, pleasant, no acute distress, answers questions appropriately - Head Head exam: Present: atraumatic, normocephalic - Eye Eye exam: Present: PERRL, conjuntiva pink, sclera anicteric Pupils: Present: PERRL - Neck Neck exam general surgery: Present: supple, trachea midline. Absent: lymphadenopathy - Respiratory Respiratory exam: Present: CTAB. Absent: accessory muscle use, rales, respiratory distress, rhonchi, wheezes - Cardiovascular Cardiovascular exam: Present: RRR, +S1, +S2. Absent: diastolic murmur, gallop, rubs, systolic murmur - GI/Abdominal GI/Abdominal exam: Present: normal bowel sounds, soft, tenderness, no peritoneal signs. Absent: distended - Extremities Exam Extremities exam: Present: warm, radial pulses palpable and symetrical. Absent : calf tenderness, cyanotic, pedal edema - Neurological Exam Neurological exam: Present: alert, CN II-XII intact, normal gait, oriented X3, no focal deficits, strengths equal and symetr throughout. Absent: pronater drift, facial droop, speech deficit - Skin Skin exam: Present: dry, intact, pallor, warm
[2016-11-27 07:25] LABS: Alpha-1-Antitrypsin 124 mg/dL (90-200)
[2016-11-27 09:27] LABS: ANA IgG by ELISA NONE DETECTED (None Detected); F-Actin (sm muscle) Ab IgG 7 Units (0-19); Myeloperoxidase Ab 3 AU/mL (0-19); Serine Protease-3 Antibody 0 AU/mL (0-19)
== END 2016-11-25 16:44 | disposition home or self-care (01) ==
LOC: EMEROO 19:47 → 3BNU 19:47
PROVIDERS: ADMIT Nurse Practitioner Family; ATTEND Nurse Practitioner Family

== ENCOUNTER 2016-11-28 18:09 | Inpatient (IN) ==
[2016-11-28] MEDS ORDERED: Ondansetron 4 MG/2 ML VIAL IVP ONE (18:59)
[2016-11-28] MEDS ORDERED: 0.9 % Sodium Chloride 1,000 ML IVC ONE ×2 (18:59→21:02)
--- NOTE | 2016-11-28 19:05 | Emergency Department Note ---
Disposition Clinical Impression: Elevated LFTs Pancreatitis Qualifiers: Chronicity: acute Pancreatitis type: unspecified pancreatitis type Acute pancreatitis complication: unspecified Qualified Code(s): K85.90 - Acute pancreatitis without necrosis or infection, unspecified Sepsis Qualifiers: Sepsis type: sepsis due to unspecified organism Qualified Code(s): A41.9 - Sepsis, unspecified organism Disposition: Admitted As Inpatient Condition: Fair Time of Disposition: 21:25 Abdominal Pain HPI - General Chief Complaint: ED Abdominal Pain Stated Complaint: vomiting, fever Time Seen by Provider: 11/28/16 18:41 Source: patient, family Mode of arrival: ambulatory Limitations: no limitations Nursing Notes Reviewed: Yes Vital Signs Reviewed: Yes - History of Present Illness HPI Narrative: Patient is a 61-year-old male who presents to [facility] ED with a chief complaint of abdominal pain. States he was seen here last week and admitted and had a cholecystectomy by Dr. Ruff. States since going home, patient has been unable to eat or drink anything. States he then spiked a fever of 101.9 today as well as turned yellow. Patient has had worsening abdominal pain. Patient states that during his hospitalization, he had been told that he might have an ERCP procedure performed. States this was never done. Denies any chest pain, difficulty breathing. No problems with urination or bowel movements. Pt Subjective Complaint: abdominal pain Onset (ago): hour(s) Consistency: Worsening Location: diffuse Pain Severity: moderate Pain Scale: 4 Quality: aching Radiation: none Migration to: no migration Improves with: nothing Worsens with: movement Associated symptoms: Reports: nausea, vomiting, fever, chills, anorexia Treatments prior to arrival: none - Related Data Home Medications Medication Instructions Recorded Confirmed Calcium Carbonate/Vitamin D3 1 tab PO BID 10/19/16 11/22/16 [Calcium 600-Vit D3 400 Tablet] Fluticasone Propionate Nasal 1 spray NS DAILY 10/19/16 11/22/16 [Flonase] Glucosamine HCl/Chondr Florez A Na 1 tab PO BID 10/19/16 11/22/16 [Cvs Glucosamine-Chondr Tablet] Lisinopril/Hydrochlorothiazide 1 tab PO DAILY 10/19/16 11/22/16 [Zestoretic 10-12.5 mg Tablet] Sildenafil Citrate [Viagra] 50 - 100 mg PO DAILY PRN 10/19/16 11/22/16 Previous Rx's Medication Instructions Recorded Docusate [Colace] 100 mg PO BID #30 capsule 11/25/16 Ibuprofen 800 mg PO Q8H PRN #40 tablet 11/25/16 OxyCODONE/APAP 5/325 [Percocet 1 each PO Q6HR PRN #30 tablet 11/25/16 5/325 MG] Allergies Allergy/AdvReac Type Severity Reaction Status Date / Time No Known Allergies Allergy Verified 11/22/16 19:49 All systems ED: reviewed and negative except as stated. Abdominal Pain PMH - Past Medical History Medical history: Reports: hypertension Male Surgical History: Reports: cholecystectomy, other Psychiatric history: Reports: no psych history - Social History Smoking status: Never smoker Alcohol use: Reports: none Drug use: Reports: none Physical Exam - General Limitations: no limitations General appearance: alert, in no apparent distress - Head Head exam: atraumatic, normocephalic, normal inspection - Eye Eye exam: Present: normal appearance, PERRL, EOMI - ENT ENT exam: normal exam, normal oropharynx, mucous membranes moist - Neck Neck exam: Present: normal inspection, full ROM, trachea midline - Chest Chest inspection: Present: normal inspection, symmetric chest wall rise - Respiratory Respiratory exam: Present: normal lung sounds bilaterally - Cardiovascular Cardiovascular exam: Present: normal rhythm, tachycardia - Abdominal Exam Abdominal exam: Present: soft, tenderness, diminished bowel sounds Course Course Narrative: Patient seen and examined. Abdominal pain status post cholecystectomy last week. Abdominal labs, CT abdomen and pelvis with IV contrast ordered. We will do septic workup. He does have peritoneal tenderness in the abdomen. Denies wanting anything for pain at this time. - Reevaluation(s) Reevaluation #1: Patient's lab work shows worsening elevated liver function tests. Bilirubin is markedly elevated from previous. His lipase is over 1000. WBC over 26,000. Zosyn ordered. Concern for pancreatitis and possible retained stone in the common bile duct. I spoke with surgeon Dr. Diane who has accepted patient for admission. Time: 21:24 Vital Signs Temperature 99.6 F 11/28/16 18:30 Pulse Rate 104 11/28/16 18:30 Respiratory Rate 18 11/28/16 18:30 Blood Pressure 114/71 11/28/16 18:30 O2 Sat by Pulse Oximetry 95 11/28/16 18:30 Temperature 99.6 F 11/28/16 18:30 Pulse Rate 104 11/28/16 18:30 Respiratory Rate 18 11/28/16 18:30 Blood Pressure 114/71 11/28/16 18:30 O2 Sat by Pulse Oximetry 95 11/28/16 18:30 Oxygen Delivery Oxygen Delivery Room Air Abdominal Pain - Medical Records Medical records reviewed: Yes I reviewed the patient's medical records. - Lab Data Lab results reviewed: Yes I reviewed the patient's lab results. Result diagrams: 11/28/16 18:55 11/28/16 18:55 Lab Results 11/28/16 11/28/16 11/28/16 Range/Units 18:55 18:55 18:55 WBC 26.3 H D (4.3-11.1) K/mcL RBC 4.85 (4.19-5.50) M/mcL Hgb 13.7 (12.9-16.9) g/dL Hct 40.7 (37.5-50.1) % MCV 83.9 (83.0-100.0) fL MCH 28.2 (28.0-33.3) pg MCHC 33.7 (31.6-35.5) g/dL RDW 13.7 (11.5-14.5) % Plt Count 463 H D (140-400) K/mcL MPV 10.0 (9.4-12.4) fL Immature Gran % 0.8 (0-4) % Seg Neutrophils % 92.4 % Lymphocytes % 1.8 % Monocytes % 4.9 % Eosinophils % 0.0 % Basophils % 0.1 % Neutrophils # 24.3 H (1.6-8.9) K/mcL Lymphocytes # 0.5 L (0.6-4.6) K/mcL Monocytes # 1.3 (0.0-1.3) K/mcL Eosinophils # 0.0 (0.0-0.6) K/mcL Basophils # 0.0 (0.0-0.2) K/mcL Platelet Estimate Slight increase H (Normal) Sodium 137 (136-145) mEq/L Potassium 3.4 L (3.5-4.5) mEq/L Chloride 100 (98-109) mEq/L Carbon Dioxide 21 (19-29) mEq/L BUN 18 (8-26) mg/dL Creatinine 1.14 (0.72-1.25) mg/dL Est GFR ( Amer) > 60 (> 60) Est GFR (Non-Af Amer) > 60 (> 60) BUN/Creatinine Ratio 16 (6-26) Glucose 106 H (70-99) mg/dL Calculated Osmolality 286 (280-300) Lactic Acid 1.1 (0.5-2.2) mmol/L Calcium 9.3 (8.6-10.8) mg/dL Total Bilirubin 6.8 H (0.2-1.2) mg/dL Direct Bilirubin 5.1 H (0.0-0.5) mg/dL Indirect Bilirubin 1.7 H (0.0-1.2) mg/dL AST 200 H (5-34) Units/L ALT 397 H (0-55) Units/L Alkaline Phosphatase 567 H (38-126) Units/L Serum Total Protein 6.9 (6.0-8.3) g/dL Albumin 2.8 L (3.5-5.0) g/dL Globulin 4.1 H (2.4-3.5) g/dL Albumin/Globulin Ratio 0.7 L (1.1-2.2) Lipase 1044 H (8-78) Units/L Urine Color (Yellow) Urine Clarity (Clear) Urine pH (5.0-8.0) pH Units Ur Specific [place] (1.010-1.025) Urine Protein (Neg-Trace) mg/dL Urine Glucose (UA) (Normal) mg/dL Urine Ketones (Negative) mg/dL Urine Blood (Negative) Urine Nitrite (Negative) Urine Bilirubin (Negative) Urine Urobilinogen (Normal) mg/dL Ur Leukocyte Esterase (Negative) Urine Microscopic RBC (0-3) per hpf Urine Microscopic WBC (0-3) per hpf Ur Squamous Epith Cells (None-Few) per lpf Urine Bacteria (None-Few) per hpf Hyaline Casts (None-Few) per lpf Ur Culture Indicated? (NO) 11/28/16 Range/Units 20:50 WBC (4.3-11.1) K/mcL RBC (4.19-5.50) M/mcL Hgb (12.9-16.9) g/dL Hct (37.5-50.1) % MCV (83.0-100.0) fL MCH (28.0-33.3) pg MCHC (31.6-35.5) g/dL RDW (11.5-14.5) % Plt Count (140-400) K/mcL MPV (9.4-12.4) fL Immature Gran % (0-4) % Seg Neutrophils % % Lymphocytes % % Monocytes % % Eosinophils % % Basophils % % Neutrophils # (1.6-8.9) K/mcL Lymphocytes # (0.6-4.6) K/mcL Monocytes # (0.0-1.3) K/mcL Eosinophils # (0.0-0.6) K/mcL Basophils # (0.0-0.2) K/mcL Platelet Estimate (Normal) Sodium (136-145) mEq/L Potassium (3.5-4.5) mEq/L Chloride (98-109) mEq/L Carbon Dioxide (19-29) mEq/L BUN (8-26) mg/dL Creatinine (0.72-1.25) mg/dL Est GFR ( Amer) (> 60) Est GFR (Non-Af Amer) (> 60) BUN/Creatinine Ratio (6-26) Glucose (70-99) mg/dL Calculated Osmolality (280-300) Lactic Acid (0.5-2.2) mmol/L Calcium (8.6-10.8) mg/dL Total Bilirubin (0.2-1.2) mg/dL Direct Bilirubin (0.0-0.5) mg/dL Indirect Bilirubin (0.0-1.2) mg/dL AST (5-34) Units/L ALT (0-55) Units/L Alkaline Phosphatase (38-126) Units/L Serum Total Protein (6.0-8.3) g/dL Albumin (3.5-5.0) g/dL Globulin (2.4-3.5) g/dL Albumin/Globulin Ratio (1.1-2.2) Lipase (8-78) Units/L Urine Color [place] A (Yellow) Urine Clarity Cloudy A (Clear) Urine pH 6.5 (5.0-8.0) pH Units Ur Specific [place] > 1.030 H (1.010-1.025) Urine Protein Trace (Neg-Trace) mg/dL Urine Glucose (UA) Normal (Normal) mg/dL Urine Ketones Trace H (Negative) mg/dL Urine Blood Negative (Negative) Urine Nitrite Negative (Negative) Urine Bilirubin Large H (Negative) Urine Urobilinogen 4.0 H (Normal) mg/dL Ur Leukocyte Esterase Trace H (Negative) Urine Microscopic RBC 0-3 (0-3) per hpf Urine Microscopic WBC 30-50 H (0-3) per hpf Ur Squamous Epith Cells Many H (None-Few) per lpf Urine Bacteria None Seen (None-Few) per hpf Hyaline Casts None Seen (None-Few) per lpf Ur Culture Indicated? YES A (NO) - Radiology Data Radiology results reviewed: Yes I reviewed the patient's radiology results. Abdomen/Pelvis CT 11/28/16 19:00 IMPRESSION: 1. Interval cholecystectomy. Small free fluid in the upper abdomen and pelvis, likely postsurgical. No drainable fluid collection identified. 2. No biliary ductal dilation. D/ / 11/28/2016 21:04:50 Michael Morrow MD / anali Interpreting Provider: Michael Morrow MD Attestation Statement - Attestation Attestation: I examined this patient and my medical decision-making was reviewed with the SALES MERCHANDISE ASSOCIATE/PA/Advanced Practice Nurse/Resident Physician. I agree with the documented findings, disposition and treatment plan as described except to the extent set forth below. This is a 61-year-old male who had a lap rocio with Dr. Ruff on . Patient has not been able to eat or drink since surgery. Patient states he has been running a fever of 101. Patient states he is now having nausea and vomiting. Patient also has associated jaundice. We are getting a CT of the abdomen and pelvis with IV contrast and abdominal labs. We will contact surgery. Pt does have rebound and guarding to his upper abdomen.
[2016-11-28 19:15] LABS: Basophils % 0.1 %; Hematocrit 40.7 % (37.5-50.1); Hemoglobin 13.7 g/dL (12.9-16.9); Immature Granulocytes % 0.8 % (0-4); Lymphocytes # 0.5 K/mcL (0.6-4.6); Lymphocytes % 1.8 %; Mean Corpuscular HGB Conc 33.7 g/dL (31.6-35.5); Mean Corpuscular Hemoglobin 28.2 pg (28.0-33.3); Mean Corpuscular Volume 83.9 fL (83.0-100.0); Monocytes # 1.3 K/mcL (0.0-1.3); Monocytes % 4.9 %; Neutrophils # 24.3 K/mcL (1.6-8.9); Platelet Count 463 K/mcL (140-400); Red Blood Count 4.85 M/mcL (4.19-5.50); Red Cell Distribution Width 13.7 % (11.5-14.5); Segmented Neutrophils % 92.4 %
[2016-11-28 19:29] LABS: Alanine Aminotransferase 397 Units/L (0-55); Albumin 2.8 g/dL (3.5-5.0); Albumin/Globulin Ratio 0.7 (1.1-2.2); Alkaline Phosphatase 567 Units/L (38-126); Aspartate Amino Transferase 200 Units/L (5-34); BUN/Creatinine Ratio 16 (6-26); Bilirubin,Direct 5.1 mg/dL (0.0-0.5); Bilirubin,Indirect 1.7 mg/dL (0.0-1.2); Bilirubin,Total 6.8 mg/dL (0.2-1.2); Blood Urea Nitrogen 18 mg/dL (8-26); Calcium 9.3 mg/dL (8.6-10.8); Carbon Dioxide 21 mEq/L (19-29); Chloride 100 mEq/L (98-109); Globulin 4.1 g/dL (2.4-3.5); Glucose 106 mg/dL (70-99); Lipase 1044 Units/L (8-78); Osmolality,Calculated 286 (280-300); Potassium 3.4 mEq/L (3.5-4.5); Sodium 137 mEq/L (136-145); Total Protein 6.9 g/dL (6.0-8.3); eGFR For African Americans > 60 (> 60); eGFR For Non-African Americans > 60 (> 60)
[2016-11-28] MEDS ORDERED: Piperacillin/Tazobactam 3.375 GM in D5% in Water (Mini-Bag+) 100 ML IVPB ONE (21:02)
[2016-11-28 21:04] LABS: Bilirubin,Urine Large (Negative); Blood,Urine Negative (Negative); Clarity,Urine Cloudy (Clear); Color,Urine Orange (Yellow); Glucose,Urine (UA) Normal (Normal); Ketones,Urine Trace mg/dL (Negative); Leukocyte Esterase,Urine Trace (Negative); Nitrite,Urine Negative (Negative); PH,Urine 6.5 pH Units (5.0-8.0); Protein,Urine Trace mg/dL (Neg-Trace); Specific Gravity,Urine > 1.030 (1.010-1.025)
[2016-11-28 21:05] LABS: Bacteria,Urine None Seen per hpf (None-Few); Hyaline Casts,Urine None Seen per lpf (None-Few); Squamous Epithelial Cell,Urine Many per lpf (None-Few); WBC,Urine 30-50 per hpf (0-3)
[2016-11-28 21:20] LABS: RBC,Urine 0-3 per hpf (0-3)
[2016-11-28] MEDS ORDERED: *HR* HYDROmorphone (PF) 1 MG/ML SYRINGE IVP PRN (21:25)
[2016-11-28] MEDS: 0.9 % Sodium Chloride 1,000 ML IVC SCH (22:50)
[2016-11-29] MEDS ORDERED: Piperacillin/Tazobactam 3.375 GM in D5% in Water (Mini-Bag+) 100 ML IVPB SCH
[2016-11-29 05:20] LABS: Basophils % 0.1 %; Hematocrit 35.3 % (37.5-50.1); Immature Granulocytes % 0.8 % (0-4); Lymphocytes # 0.6 K/mcL (0.6-4.6); Mean Corpuscular HGB Conc 32.6 g/dL (31.6-35.5); Mean Corpuscular Hemoglobin 27.8 pg (28.0-33.3); Mean Corpuscular Volume 85.3 fL (83.0-100.0); Mean Platelet Volume 9.7 fL (9.4-12.4); Monocytes % 6.5 %; Neutrophils # 13.5 K/mcL (1.6-8.9); Platelet Count 391 K/mcL (140-400); Red Blood Count 4.14 M/mcL (4.19-5.50); Segmented Neutrophils % 88.6 %
[2016-11-29 05:29] LABS: Hemoglobin 11.5 g/dL (12.9-16.9)
[2016-11-29 05:37] LABS: Alanine Aminotransferase 267 Units/L (0-55); Albumin/Globulin Ratio 0.6 (1.1-2.2); Alkaline Phosphatase 414 Units/L (38-126); Amylase 732 Units/L (25-125); Aspartate Amino Transferase 101 Units/L (5-34); BUN/Creatinine Ratio 22 (6-26); Bilirubin,Indirect 1.1 mg/dL (0.0-1.2); Blood Urea Nitrogen 18 mg/dL (8-26); Calcium 8.2 mg/dL (8.6-10.8); Carbon Dioxide 25 mEq/L (19-29); Chloride 104 mEq/L (98-109); Globulin 3.4 g/dL (2.4-3.5); Glucose 87 mg/dL (70-99); Lipase 1003 Units/L (8-78); Osmolality,Calculated 287 (280-300); Potassium 3.4 mEq/L (3.5-4.5); Sodium 138 mEq/L (136-145); Total Protein 5.6 g/dL (6.0-8.3); eGFR For African Americans > 60 (> 60); eGFR For Non-African Americans > 60 (> 60)
[2016-11-29 05:38] LABS: Albumin 2.2 g/dL (3.5-5.0); Bilirubin,Direct 2.2 mg/dL (0.0-0.5); Bilirubin,Total 3.3 mg/dL (0.2-1.2)
[2016-11-29] MEDS: Piperacillin/Tazobactam 3.375 GM in D5% in Water (Mini-Bag+) 100 ML IVPB SCH ×3 (06:01→21:36)
[2016-11-29] MEDS: 0.9 % Sodium Chloride 1,000 ML IVC SCH ×2 (06:49→17:36)
--- NOTE | 2016-11-29 10:05 | General Surg History&Physical ---
Date of Encounter: 11/29/16 Time of Encounter: 09:45 Assessment and Plan (1) Elevated liver function tests Current Visit: No Status: Acute The assessment and plan as outlined above was discussed with the patient and/or family members who expressed understanding and agreement. All questions were answered. HIDA scan shows no evidence of bile leak of ductal dilatation Consult to Dr. Mckeon with gastroenterology for possible ERCP- notified NPO IV fluids Repeat am labs (2) Pancreatitis Current Visit: Yes Status: Acute The assessment and plan as outlined above was discussed with the patient and/or family members who expressed understanding and agreement. All questions were answered. Consult to Dr. Mckeon with Gastroenterology- notified NPO IV fluids Supportive care/pain control Repeat am labs Qualifiers: Chronicity: acute Pancreatitis type: biliary Acute pancreatitis complication: no infection or necrosis Qualified Code(s): K85.10 - Biliary acute pancreatitis without necrosis or infection (3) S/P cholecystectomy Current Visit: Yes Status: Acute The assessment and plan as outlined above was discussed with the patient and/or family members who expressed understanding and agreement. All questions were answered. POD #5 from lap cholecystectomy with IOC with Dr. Ruff (4) DVT prophylaxis Current Visit: No Status: Acute The assessment and plan as outlined above was discussed with the patient and/or family members who expressed understanding and agreement. All questions were answered. EPCDs to bilateral lower extremities for DVT prophylaxis Ambulate hallways TID with assistance History of Present Illness Chief complaint: Abdominal discomfort with associated nausea/vomiting HPI: Mr. Ron is a 61 year old male who is POD #5 from a laparoscopic cholecystectomy with IOC with Dr. Ruff. He was discharged home POD #1 after tolerating liquids. He states that since being home he has had a poor appetite. He is unable to take in much PO intake without experiencing abdominal discomfort with nausea/vomiting. Denies hematemesis of coffee ground emesis. He admits to a fever of 101.9 yesterday. His abdominal discomfort is located in the epigastric area. He is passing flatus but has not had a bowel movement since surgery. He denies difficulty with urination but states that his urine is dark. Denies shortness of breath of chest pains. Past Med Surg Social Fam HX - Past Medical History Source: patient, old records reviewed Medical history: hypertension Psychiatric history: no psych history - Past Surgical History Surgical History: cholecystectomy (11/24/[address] Ruff), orthopedic, other ( finger surgery), other (Colonoscopy 2006) - Social History Smoking Status: Never smoker Smokeless Tobacco Status: No (Quit 20 years ago) Alcohol use: occasionally Drug use: none Occupational status: employed Current living situation: Home - Independent Activity Level: Independent ambulation - Family History Father Living Status: Still Living Hx Family Cardiac Disorders: Yes (HTN) Hx Family Respiratory Disorders: No Hx Family Cancer: Yes (Prostate) Hx Family GI Disorders: No Hx Family Endocrine Disorder: No Hx Family Neuromuscular Disorders: No Hx Family Neurologic Disorders: No Hx Family HEENT Disorders: No Hx Family Autoimmune Disorders: No Mother Living Status: Hx Family Cardiac Disorders: Yes (HTN) Hx Family Respiratory Disorders: No Hx Family Cancer: Yes (Sarcoma) Hx Family GI Disorders: No Hx Family Endocrine Disorder: Yes (thyroid) Hx Family Neuromuscular Disorders: No Hx Family Neurologic Disorders: No Hx Family HEENT Disorders: No Hx Family Autoimmune Disorders: No Medications and Allergies Calcium Carbonate/Vitamin D3 [Calcium 600-Vit D3 400 Tablet] 1 tab PO BID [History] Fluticasone Propionate Nasal [Flonase] 1 spray NS DAILY 10/19/16 [History] Glucosamine HCl/Chondr Florez A Na [Cvs Glucosamine-Chondr Tablet] 1 tab PO BID [History] Lisinopril/Hydrochlorothiazide [Zestoretic 10-12.5 mg Tablet] 1 tab PO DAILY [History] Sildenafil Citrate [Viagra] 50 - 100 mg PO DAILY PRN 10/19/16 [History] Allergies No Known Allergies Allergy (Verified 11/22/16 19:49) Review of Systems All systems PM: reviewed and no additional remarkable complaints except as stated (in the HPI) All systems PM: A 10-system review of systems was performed and is negative for pertinent findings except as documented above in the HPI. General Surgery Exam Initial Vital Signs Temp Pulse Resp BP Pulse Ox 99.6 F 104 18 114/71 95 11/28/16 18:30 11/28/16 18:30 11/28/16 18:30 11/28/16 18:30 11/28/16 18:30 - General physical appearance well developed, well nourished, no distress - Eyes normal ocular movement - ENT normal mucosa, atraumatic, normocephalic - Neck trachea midline - Respiratory normal expansion, normal respiratory effort, clear to auscultation - Cardiovascular Cardiovascular exam: Present: RRR, 15, 16 - Abdomen Abdomen general surgery: Present: bowel sounds present, soft, tender Abdominal Tenderness: Present: epigastic - Incision Incision: Present: clean and dry, intact - Integumentary Integumentary general surgery: Present: warm and dry - Neurologic Present: CN 2-12 grossly intact - Musculoskeletal Present: normal gait, normal posture - Psychiatric Psychiatric general surgery: Present: appropriate, oriented to person, oriented to place, oriented to time, speech is normal, memory intact Results - Labs 11/29/16 04:59 11/29/16 04:59 Abnormal lab results WBC 15.2 K/mcL (4.3-11.1) H 11/29/16 04:59 RBC 4.14 M/mcL (4.19-5.50) L 11/29/16 04:59 Hgb 11.5 g/dL (12.9-16.9) L D 11/29/16 04:59 Hct 35.3 % (37.5-50.1) L 11/29/16 04:59 MCH 27.8 pg (28.0-33.3) L 11/29/16 04:59 Neutrophils # 13.5 K/mcL (1.6-8.9) H 11/29/16 04:59 Platelet Estimate Slight increase (Normal) H 11/28/16 18:55 Potassium 3.4 mEq/L (3.5-4.5) L 11/29/16 04:59 Calcium 8.2 mg/dL (8.6-10.8) L 11/29/16 04:59 Total Bilirubin 3.3 mg/dL (0.2-1.2) H D 11/29/16 04:59 Direct Bilirubin 2.2 mg/dL (0.0-0.5) H D 11/29/16 04:59 AST 101 Units/L (5-34) H 11/29/16 04:59 ALT 267 Units/L (0-55) H 11/29/16 04:59 Alkaline Phosphatase 414 Units/L (38-126) H 11/29/16 04:59 Serum Total Protein 5.6 g/dL (6.0-8.3) L 11/29/16 04:59 Albumin 2.2 g/dL (3.5-5.0) L D 11/29/16 04:59 Albumin/Globulin Ratio 0.6 (1.1-2.2) L 11/29/16 04:59 Amylase 732 Units/L (25-125) H 11/29/16 04:59 Lipase 1003 Units/L (8-78) H 11/29/16 04:59 Urine Color [place] (Yellow) A 11/28/16 20:50 Urine Clarity Cloudy (Clear) A 11/28/16 20:50 Ur Specific [place] > 1.030 (1.010-1.025) H 11/28/16 20:50 Urine Ketones Trace mg/dL (Negative) H 11/28/16 20:50 Urine Bilirubin Large (Negative) H 11/28/16 20:50 Urine Urobilinogen 4.0 mg/dL (Normal) H 11/28/16 20:50 Ur Leukocyte Esterase Trace (Negative) H 11/28/16 20:50 Urine Microscopic WBC 30-50 per hpf (0-3) H 11/28/16 20:50 Ur Squamous Epith Cells Many per lpf (None-Few) H 11/28/16 20:50 Ur Culture Indicated? YES (NO) A 11/28/16 20:50 Diabetes panel 11/29/16 Range/Units 04:59 Sodium 138 (136-145) mEq/L Potassium 3.4 L (3.5-4.5) mEq/L Chloride 104 (98-109) mEq/L Carbon Dioxide 25 (19-29) mEq/L BUN 18 (8-26) mg/dL Creatinine 0.83 (0.72-1.25) mg/dL Glucose 87 (70-99) mg/dL Calcium 8.2 L (8.6-10.8) mg/dL AST 101 H (5-34) Units/L ALT 267 H (0-55) Units/L Alkaline Phosphatase 414 H (38-126) Units/L Albumin 2.2 L D (3.5-5.0) g/dL Calcium panel 11/29/16 Range/Units 04:59 Calcium 8.2 L (8.6-10.8) mg/dL Albumin 2.2 L D (3.5-5.0) g/dL Pituitary panel 11/29/16 Range/Units 04:59 Sodium 138 (136-145) mEq/L Potassium 3.4 L (3.5-4.5) mEq/L Chloride 104 (98-109) mEq/L Carbon Dioxide 25 (19-29) mEq/L BUN 18 (8-26) mg/dL Creatinine 0.83 (0.72-1.25) mg/dL Glucose 87 (70-99) mg/dL Calcium 8.2 L (8.6-10.8) mg/dL Adrenal panel 11/29/16 Range/Units 04:59 Sodium 138 (136-145) mEq/L Potassium 3.4 L (3.5-4.5) mEq/L Chloride 104 (98-109) mEq/L Carbon Dioxide 25 (19-29) mEq/L BUN 18 (8-26) mg/dL Creatinine 0.83 (0.72-1.25) mg/dL Glucose 87 (70-99) mg/dL Calcium 8.2 L (8.6-10.8) mg/dL Total Bilirubin 3.3 H D (0.2-1.2) mg/dL AST 101 H (5-34) Units/L ALT 267 H (0-55) Units/L Alkaline Phosphatase 414 H (38-126) Units/L Albumin 2.2 L D (3.5-5.0) g/dL All other labs normal. - Imaging Additional studies: Abdomen/Pelvis CT 11/28/16 19:00 IMPRESSION: 1. Interval cholecystectomy. Small free fluid in the upper abdomen and pelvis, likely postsurgical. No drainable fluid collection identified. 2. No biliary ductal dilation. D/ / 11/28/2016 21:04:50 Michael Morrow MD / bcarter Interpreting Provider: Michael Morrow MD Bile Acid Absorption NM 11/29/16 06:00 IMPRESSION: Status post cholecystectomy without scintigraphic evidence of a bile leak. D/ / Juan Carlos Samayoa MD / Juan Carlos Samayoa MD Interpreting Provider: Juan Carlos Samayoa MD - Attending Attestation I examined this patient and my medical decision-making was reviewed with the TABLE RUNNER/PA/Advanced Practice Nurse/Resident Physician. I agree with the documented findings, disposition and treatment plan as described except to the extent set forth below.
[2016-11-29] MEDS ORDERED: Naloxone 0.4 MG/ML INJ IVP PRN (10:18)
[2016-11-29] MEDS ORDERED: *HR* Metoprolol 5 MG/5 ML VIAL IVP PRN (10:18)
[2016-11-29] MEDS ORDERED: Potassium Chloride 40 MEQ, Lidocaine 1% 2 ML in D5% in Water 500 ML IVPB ONE (10:22)
[2016-11-29] MEDS: Pantoprazole 40 MG VIAL IVP SCH (11:36)
--- NOTE | 2016-11-29 11:54 | Gastroenterology Consult Note ---
<Donavan Longo - Last Filed: 11/29/16 12:10> Date of Encounter: 11/29/16 Time of Encounter: 10:30 - Assessment and plan (1) Elevated LFTs Current Visit: Yes Status: Acute Assessment and plan: Pt is s/p laparoscopic cholecystectomy with IOC on 11/24/2016. Pt presented with TB 6.8, DB 5.1, AST 200, ALT 397, and lipase 1044. Today TB 3.3, DB 2.2, AST 101, ALT 267, lipase 1003. HIDA scan with no evidence of bile leak. CT A/P with small amount of free fluid in upper abdomen, but no drainable fluid, no biliary dilation. Plan for EUS and ERCP to evaluate. Keep NPO. (2) Pancreatitis Current Visit: Yes Status: Acute Assessment and plan: Pt with abdominal pain, nausea, and vomiting. Lipase 1044 on admission, now 1003. No mention of pancreas on CT A/P. Keep NPO. Continue IV fluids, anti- emetics, and pain control. Check IgG4, ionized Ca, RATNA, and triglycerides. Qualifiers: Chronicity: acute Pancreatitis type: biliary Acute pancreatitis complication: no infection or necrosis Qualified Code(s): K85.10 - Biliary acute pancreatitis without necrosis or infection (3) S/P cholecystectomy Current Visit: Yes Status: Acute Assessment and plan: Management per Surgery. (4) Epigastric pain Current Visit: No Status: Acute - Time Spent With Patient Total time spent is greater than 50% in coordination of care (as documented) at patient's floor/unit and/or counseling patient: GI History of Present Illness - Data of Consult Patient: known to practice within the last 3 years Consult date: 11/29/16 Requesting Physician: Gene Ruff DO - Consult Narrative Reason for consult: Hyperbilirubinemia History of present illness: Mr. Ron is a 61 year old male with PMHx of HTN and is s/p laparoscopic cholecystectomy with IOC on 11/24/2016. He presented with worsening abdominal pain, unable to tolerate PO intake, and jaundice. He reports nausea and vomiting with PO intake. He denies hematemesis or coffee-ground emesis. He reports a fever of 101.9 yesterday. He denies a BM since prior to surgery. Pt presented with TB 6.8, DB 5.1, AST 200, ALT 397, and lipase 1044. Procedures: Colonoscopy 10/19/2016 Dr. Benedicto valenzuela NSAIDs: None Anticoagulation: None Past Med Surg Social Fam HX - Past Medical History Medical history: hypertension Psychiatric history: no psych history - Past Surgical History Surgical History: cholecystectomy (11/24/[address] Ruff), orthopedic, other ( finger surgery), other (Colonoscopy 2006) - Social History Smoking Status: Never smoker Smokeless Tobacco Status: No (Quit 20 years ago) Alcohol use: occasionally Drug use: none - Family History Father Living Status: Still Living Hx Family Cardiac Disorders: Yes (HTN) Hx Family Respiratory Disorders: No Hx Family Cancer: Yes (Prostate) Hx Family GI Disorders: No Hx Family Endocrine Disorder: No Hx Family Neuromuscular Disorders: No Hx Family Neurologic Disorders: No Hx Family HEENT Disorders: No Hx Family Autoimmune Disorders: No Mother Living Status: Hx Family Cardiac Disorders: Yes (HTN) Hx Family Respiratory Disorders: No Hx Family Cancer: Yes (Sarcoma) Hx Family GI Disorders: No Hx Family Endocrine Disorder: Yes (thyroid) Hx Family Neuromuscular Disorders: No Hx Family Neurologic Disorders: No Hx Family HEENT Disorders: No Hx Family Autoimmune Disorders: No - Gastrointestinal Gastrointestinal: Present: as per HPI - Constitutional Constitutional: as per HPI - EENT Eyes: as per HPI Ears: Present: as per HPI Nose, mouth and throat: Present: as per HPI - Cardiovascular Cardiovascular ROS: Present: as per HPI - Respiratory Respiratory IM: Present: as per HPI - Genitourinary Genitourinary: Absent: change in color, Urinary frequency - Neurological ROS Neurological GI: Present: as per HPI - Hematologic/Lymphatic Hematologic/Lymphatic pediatric: Present: as per HPI - Musculoskeletal Musculoskeletal ROS GI: Present: as per HPI - Integumentary Integumentary GI: Present: as per HPI - Psychiatric ROS Psychiatric GI: Present: as per HPI - Endocrine Endocrine IM: Present: as per HPI - Constitutional Vitals: Temp Pulse Resp BP Pulse Ox 98.3 F 71 16 136/75 93 L 11/29/16 06:55 11/29/16 06:55 11/29/16 06:55 11/29/16 06:55 11/29/16 06:55 General appearance: Present: cooperative, A&O X 3, no acute distress, answers questions appropriately - Head Head exam: Present: atraumatic, normocephalic - Eye Eye exam: Present: scleral icterus - ENT ENT exam: Present: mucous membranes dry - Neck Neck exam general surgery: Present: normal inspection, trachea midline - Respiratory Respiratory exam: Present: CTAB. Absent: rales, rhonchi - Cardiovascular Cardiovascular exam: Present: RRR, +S1, +S2 - GI/Abdominal GI/Abdominal exam: Present: guarding, soft, tenderness (epigastric), no peritoneal signs. Absent: distended, firm - Rectal Rectal exam: Present: deferred - Extremities Exam Extremities exam: Present: warm - Neurological Exam Neurological exam: Present: no focal deficits - Psychiatric Psychiatric exam: Present: normal affect, normal mood - Skin Skin exam: Present: dry, intact, warm. Absent: normal color (slight jaundice) Results - Labs CBC & Chem 7: 11/29/16 04:59 11/29/16 04:59 Labs: Last Result Calcium 8.2 mg/dL (8.6-10.8) L 11/29/16 04:59 Entire Visit Hgb 11.5 g/dL (12.9-16.9) L D 11/29/16 04:59 Hct 35.3 % (37.5-50.1) L 11/29/16 04:59 Total Bilirubin 3.3 mg/dL (0.2-1.2) H D 11/29/16 04:59 AST 101 Units/L (5-34) H 11/29/16 04:59 ALT 267 Units/L (0-55) H 11/29/16 04:59 Amylase 732 Units/L (25-125) H 11/29/16 04:59 Lipase 1003 Units/L (8-78) H 11/29/16 04:59 - Impressions Impressions Bile Acid Absorption NM 11/29/16 06:00 IMPRESSION: Status post cholecystectomy without scintigraphic evidence of a bile leak. D/ / Juan Carlos Samayoa MD / Juan Carlos Samayoa MD Interpreting Provider: Juan Carlos Samayoa MD Consult Discharge Plan - Plan Referrals: Dennis Godwin MD [Primary Care Provider] - <Jeramy Mckeon - Last Filed: 11/30/16 08:11> Date of Encounter: 11/28/16 Time of Encounter: 18:00 - Time Spent With Patient Total time spent is greater than 50% in coordination of care (as documented) at patient's floor/unit and/or counseling patient: GI History of Present Illness - Data of Consult Requesting Physician: Gene Ruff DO - Consult Narrative History of present illness: Mr. Ron is a 61 year old male - Constitutional Vitals: Temp Pulse Resp BP Pulse Ox 98.3 F 57 16 124/73 95 11/30/16 07:18 11/30/16 07:18 11/30/16 07:18 11/30/16 07:18 11/30/16 07:18 Results - Labs CBC & Chem 7: 11/30/16 04:50 11/30/16 04:50 Labs: Last Result Calcium 8.1 mg/dL (8.6-10.8) L 11/30/16 04:50 Triglycerides 84 mg/dL (< 150) 11/29/16 12:28 Entire Visit Hgb 11.1 g/dL (12.9-16.9) L 11/30/16 04:50 Hct 33.3 % (37.5-50.1) L 11/30/16 04:50 Total Bilirubin 1.6 mg/dL (0.2-1.2) H D 11/30/16 04:50 AST 76 Units/L (5-34) H 11/30/16 04:50 ALT 201 Units/L (0-55) H 11/30/16 04:50 Amylase 202 Units/L (25-125) H 11/30/16 04:50 Lipase 388 Units/L (8-78) H 11/30/16 04:50 - Attending Attestation I examined this patient and my medical decision-making was reviewed with the QUARRY WORKER/PA/Advanced Practice Nurse/Resident Physician. I agree with the documented findings, disposition and treatment plan as described except to the extent set forth below.
--- NOTE | 2016-11-29 19:12 | Anesthesia Evaluation PreOp ---
Date of Encounter: 11/29/16 Time of Encounter: 19:10 - Past History Planned Operation: ERCP Cardiac History: HTN Pulmonary History: Denies Any Significant HX RIM ROLLER SETTER History: Denies Any Significant HX Other Medical History: Hepatic (Fatty Liver), Renal (8 mm lesion posterior margin Left kidney) Anesthesia History: No Prior Anesthetic Complications, Past Anesthesia ( Orthopedic sx(finger), GB 11/24/2016) Alcohol Use: occasionally Drug use: none Medications and Allergies Calcium Carbonate/Vitamin D3 [Calcium 600-Vit D3 400 Tablet] 1 tab PO BID [History] Fluticasone Propionate Nasal [Flonase] 1 spray NS DAILY 10/19/16 [History] Glucosamine HCl/Chondr Florez A Na [Cvs Glucosamine-Chondr Tablet] 1 tab PO BID [History] Lisinopril/Hydrochlorothiazide [Zestoretic 10-12.5 mg Tablet] 1 tab PO DAILY [History] Sildenafil Citrate [Viagra] 50 - 100 mg PO DAILY PRN 10/19/16 [History] Allergies No Known Allergies Allergy (Verified 11/22/16 19:49) - Meds/Allergy Pre-op Review Medications Reviewed: Yes Allergies Reviewed: Yes Beta Blockers on Current Med List: No Anesthesia Results - Labs 11/29/16 04:59 11/29/16 04:59 Echo 11/23/16 EF-65% Mod LV diastolic Dysfunction No pHTN No sig. valvular dx Stress 11/23/16 No ischemia EF-74% - Imaging EKG: image reviewed (SR, Poss old lat. NM) Chest x-ray: report reviewed (Low lung volumes, 6mm r. middle lobe lung nodule) Anesthesia Exam O2 Sat Height 1.8 m Weight 96.6 kg Weight 97.522 kg O2 Sat by Pulse Oximetry 96 O2 Sat by Pulse Oximetry 97 O2 Sat by Pulse Oximetry 93 O2 Sat by Pulse Oximetry 93 O2 Sat by Pulse Oximetry 95 O2 Sat by Pulse Oximetry 95 Vital Signs Temp Pulse Resp BP Pulse Ox 99.6 F 104 18 114/71 95 11/28/16 18:30 11/28/16 18:30 11/28/16 18:30 11/28/16 18:30 11/28/16 18:30 Vital Signs/O2 Sat, Most Current Temp Pulse Resp BP Pulse Ox 98.5 F 62 16 122/72 96 11/29/16 15:30 11/29/16 15:30 11/29/16 15:30 11/29/16 15:30 11/29/16 15:30 Height: 5'11'' Weight: 212# NPO (# of Hours): > 8 hrs Pain Scale: 0 Pain Scale Used: Numeric (1 - 10) - HEENT Pupil (Motor): Pupils equal, EOMI Mallampati: I Teeth: Normal Oral Opening: Greater than 3 - RIM ROLLER SETTER LOC: Oriented RIM ROLLER SETTER Motor: Normal RUE, Normal LUE, Normal RLE, Normal LLE, Normal Face RIM ROLLER SETTER Sensory: Normal: RUE, LUE, RLE, LLE, Face - Cardiac Rhythm: Regular Murmur: None JVD: No Carotid Bruit: No - Pulmonary Breath Sounds: bilateral Clear Respiratory Effort: Symmetrical Anesthesia Assess/Plan ASA Score: 3 Modified Aj Scale for Level of Consciousness: Cooperative, oriented, and tranquil Anesthetic Plan: General Autologous Blood: Yes Monitoring Plan: Standard Monitors Recovery Plan: PACU
[2016-11-30] MEDS: Ondansetron 4 MG/2 ML VIAL IVP PRN ×2 (00:25→09:06)
[2016-11-30] MEDS: 0.9 % Sodium Chloride 1,000 ML IVC SCH ×2 (01:15→22:47)
[2016-11-30 05:02] LABS: Basophils % 0.2 %; Eosinophils % 0.3 %; Hematocrit 33.3 % (37.5-50.1); Hemoglobin 11.1 g/dL (12.9-16.9); Lymphocytes # 0.9 K/mcL (0.6-4.6); Mean Corpuscular HGB Conc 33.3 g/dL (31.6-35.5); Mean Corpuscular Volume 86.9 fL (83.0-100.0); Mean Platelet Volume 10.4 fL (9.4-12.4); Monocytes # 0.8 K/mcL (0.0-1.3); Monocytes % 6.7 %; Platelet Count 279 K/mcL (140-400); Red Blood Count 3.83 M/mcL (4.19-5.50); Red Cell Distribution Width 14.3 % (11.5-14.5); Segmented Neutrophils % 83.8 %
[2016-11-30 05:19] LABS: Alanine Aminotransferase 201 Units/L (0-55); Albumin 2.2 g/dL (3.5-5.0); Albumin/Globulin Ratio 0.6 (1.1-2.2); Alkaline Phosphatase 318 Units/L (38-126); Amylase 202 Units/L (25-125); BUN/Creatinine Ratio 23 (6-26); Bilirubin,Indirect 0.9 mg/dL (0.0-1.2); Blood Urea Nitrogen 16 mg/dL (8-26); Calcium 8.1 mg/dL (8.6-10.8); Carbon Dioxide 22 mEq/L (19-29); Chloride 107 mEq/L (98-109); Globulin 3.9 g/dL (2.4-3.5); Glucose 80 mg/dL (70-99); Lipase 388 Units/L (8-78); Osmolality,Calculated 282 (280-300); Sodium 136 mEq/L (136-145); Total Protein 6.1 g/dL (6.0-8.3); eGFR For African Americans > 60 (> 60); eGFR For Non-African Americans > 60 (> 60)
[2016-11-30 05:20] LABS: Aspartate Amino Transferase 76 Units/L (5-34); Bilirubin,Direct 0.7 mg/dL (0.0-0.5); Bilirubin,Total 1.6 mg/dL (0.2-1.2)
[2016-11-30 05:47] LABS: Neutrophils # 9.6 K/mcL (1.6-8.9)
[2016-11-30 05:48] LABS: Large Platelets Present (Not Present); Platelet Estimate Normal (Normal)
[2016-11-30] MEDS: Piperacillin/Tazobactam 3.375 GM in D5% in Water (Mini-Bag+) 100 ML IVPB SCH ×3 (05:49→18:12)
[2016-11-30] MEDS: Pantoprazole 40 MG VIAL IVP SCH (08:57)
[2016-11-30] MEDS ORDERED: Lidocaine -MPF 4% 5 ML AMPUL TP ONE (09:43)
[2016-11-30] MEDS ORDERED: Lidocaine -MPF 2% 5 ML VIAL INFILT ONE (09:43)
[2016-11-30] MEDS ORDERED: *HR* Succinylcholine 200 MG/10 ML VIAL IVP ONE (09:43)
[2016-11-30] MEDS ORDERED: *HR* Propofol 200 MG/20 ML VIAL IVP ONE (09:43)
[2016-11-30] MEDS ORDERED: Ondansetron 4 MG/2 ML VIAL IVP ONE (09:43)
[2016-11-30] MEDS ORDERED: Dexamethasone 120 MG/30 ML MDV IVP ONE (09:43)
--- NOTE | 2016-11-30 11:15 | General Surgery Progress Note ---
Date of Encounter: 11/30/16 Time of Encounter: 11:10 - Assessment and Plan (1) Elevated liver function tests Current Visit: No Status: Acute Improving NPO ERCP and EUS today with Dr. Mckeon IV fluids Repeat am labs (2) Pancreatitis Current Visit: Yes Status: Acute Improving NPO ERCP and EUS today with Dr. Mckeon IV fluids Repeat am labs Qualifiers: Chronicity: acute Pancreatitis type: biliary Acute pancreatitis complication: no infection or necrosis Qualified Code(s): K85.10 - Biliary acute pancreatitis without necrosis or infection (3) S/P cholecystectomy Current Visit: Yes Status: Acute POD #6 Laparoscopic cholecystectomy with IOC with Dr. Ruff (4) Ascending cholangitis Current Visit: Yes Status: Acute Leukocytosis improving Symptoms resolving IV antibiotics- Zosyn (5) DVT prophylaxis Current Visit: No Status: Acute Ambulate hallways TID EPCDs to bilateral lower extremities for DVT prophylaxis Subjective Patient reports: no new complaints, feels better, voiding w/o difficulty, flatus , nausea (after eating clear liquids), afebrile, other (Bloating after clear liquids) Objective Vital Signs - Last 8 Hours Temp Pulse Resp BP Pulse Ox 11/30/16 07:18 98.3 F 57 16 124/73 95 11/30/16 04:00 98.0 F 62 20 122/69 95 Intake and Output 11/29/16 11/30/16 11/30/16 23:59 07:59 15:59 Intake Total 860 / 860 1100 / 1100 Output Total 125 / 125 280 / 280 Balance 735 / 735 820 / 820 Intake: IV Fluids 500 / 500 1100 / 1100 0.9 % Sodium Chloride 1, 400 / 400 1000 / 1000 000 ML @ 125 mls/hr IVC . Q8H JOHN Rx#:[id number] Zosyn 3.375 GM In 100 / 100 100 / 100 Dextrose 5% (Minibag+) 100 ML 100 ML @ 25 mls/hr IVPB Q8H JOHN Rx#: [id number] Oral 360 / 360 0 / 0 Output: Urine 280 / 280 Catheter 125 / 125 Other: Meal Dinner NPO Weight 98.566 kg Blood Glucose* 86 Patient Weight 11/30/16 23:59 Weight 98.566 kg - General physical appearance well developed, well nourished, no distress - Eyes normal ocular movement - ENT normal mucosa, atraumatic, normocephalic - Neck Neck exam: trachea midline - Respiratory normal expansion, normal respiratory effort, clear to auscultation - Cardiovascular Cardiovascular exam: Present: RRR - Abdomen Abdomen: Present: bowel sounds present, soft, non tender - Incision Incision: Present: clean and dry, intact - Neurologic CN 2-12 grossly intact - Musculoskeletal normal gait, normal posture - Psychiatric oriented to time, oriented to person, oriented to place, speech is normal, memory intact - Labs 11/30/16 04:50 11/30/16 04:50 Diabetes panel 11/30/16 Range/Units 04:50 Sodium 136 (136-145) mEq/L Potassium 4.0 (3.5-4.5) mEq/L Chloride 107 (98-109) mEq/L Carbon Dioxide 22 (19-29) mEq/L BUN 16 (8-26) mg/dL Creatinine 0.69 L (0.72-1.25) mg/dL Glucose 80 (70-99) mg/dL Calcium 8.1 L (8.6-10.8) mg/dL AST 76 H (5-34) Units/L ALT 201 H (0-55) Units/L Alkaline Phosphatase 318 H (38-126) Units/L Albumin 2.2 L (3.5-5.0) g/dL Calcium panel 11/30/16 Range/Units 04:50 Calcium 8.1 L (8.6-10.8) mg/dL Albumin 2.2 L (3.5-5.0) g/dL Pituitary panel 11/30/16 Range/Units 04:50 Sodium 136 (136-145) mEq/L Potassium 4.0 (3.5-4.5) mEq/L Chloride 107 (98-109) mEq/L Carbon Dioxide 22 (19-29) mEq/L BUN 16 (8-26) mg/dL Creatinine 0.69 L (0.72-1.25) mg/dL Glucose 80 (70-99) mg/dL Calcium 8.1 L (8.6-10.8) mg/dL Adrenal panel 11/30/16 Range/Units 04:50 Sodium 136 (136-145) mEq/L Potassium 4.0 (3.5-4.5) mEq/L Chloride 107 (98-109) mEq/L Carbon Dioxide 22 (19-29) mEq/L BUN 16 (8-26) mg/dL Creatinine 0.69 L (0.72-1.25) mg/dL Glucose 80 (70-99) mg/dL Calcium 8.1 L (8.6-10.8) mg/dL Total Bilirubin 1.6 H D (0.2-1.2) mg/dL AST 76 H (5-34) Units/L ALT 201 H (0-55) Units/L Alkaline Phosphatase 318 H (38-126) Units/L Albumin 2.2 L (3.5-5.0) g/dL Consult Discharge Plan - Plan Referrals: Dennis Godwin MD [Primary Care Provider] - - Attending Attestation I examined this patient and my medical decision-making was reviewed with the PRECISION INSTRUMENT MAKER/PA/Advanced Practice Nurse/Resident Physician. I agree with the documented findings, disposition and treatment plan as described except to the extent set forth below.
[2016-11-30] MEDS ORDERED: *HR* Midazolam HCl 2 MG/2 ML VIAL ONE (12:57)
[2016-11-30] MEDS ORDERED: *HR* FentaNYL (PF) 100 MCG/2 ML VIAL ONE (12:57)
[2016-11-30] MEDS ORDERED: Ringers Solution, Lactated 1,000 ML IVC SCH (13:00)
[2016-11-30] MEDS ORDERED: Indomethacin 50 MG SUPP.RECT RC ONE (13:50)
[2016-11-30] MEDS ORDERED: *HR* HYDROmorphone 2 MG/ML SYRINGE ONE (14:29)
[2016-11-30] MEDS ORDERED: *HR* HYDROmorphone 2 MG/ML SYRINGE IVP ONE (14:34)
--- NOTE | 2016-11-30 15:51 | Anesthesia Evaluation Post Op ---
Date of Encounter: 11/30/16 Time of Encounter: 16:00 - Vital Signs Vital Signs: Vital Signs/O2 Sat/Glucose, Most Current Temp Pulse Resp BP Pulse Ox 11/30/16 15:30 97.9 F 63 12 95/47 97 11/30/16 12:52 63 16 125/82 97 - Lungs Lungs: Clear Ascult./Percussion - Airway Airway: Non-obstructed - Cardiovascular Regular Rate - Mental Status Mental Status: Alert & Oriented, Answers Appropriately - Pain Pain Scale: 0 - Nausea Vomiting Nausea Vomiting: Not Present - Hydration Hydration: NPO - Discharge PostOp Status: Transfer Patient to floor
[2016-12-01] MEDS: Piperacillin/Tazobactam 3.375 GM in D5% in Water (Mini-Bag+) 100 ML IVPB SCH ×2 (03:03→10:21)
[2016-12-01] MEDS: 0.9 % Sodium Chloride 1,000 ML IVC SCH ×2 (07:00→07:45)
[2016-12-01] MEDS: Pantoprazole 40 MG VIAL IVP SCH (07:50)
[2016-12-01 10:24] LABS: Alanine Aminotransferase 130 Units/L (0-55); Albumin 2.1 g/dL (3.5-5.0); Albumin/Globulin Ratio 0.6 (1.1-2.2); Alkaline Phosphatase 272 Units/L (38-126); Aspartate Amino Transferase 33 Units/L (5-34); BUN/Creatinine Ratio 21 (6-26); Bilirubin,Total 1.4 mg/dL (0.2-1.2); Blood Urea Nitrogen 16 mg/dL (8-26); Calcium 8.2 mg/dL (8.6-10.8); Carbon Dioxide 22 mEq/L (19-29); Chloride 106 mEq/L (98-109); Globulin 3.6 g/dL (2.4-3.5); Glucose 152 mg/dL (70-99); Osmolality,Calculated 288 (280-300); Potassium 3.3 mEq/L (3.5-4.5); Sodium 137 mEq/L (136-145); Total Protein 5.7 g/dL (6.0-8.3); eGFR For African Americans > 60 (> 60); eGFR For Non-African Americans > 60 (> 60)
[2016-12-01 11:53] LABS: Immunoglobulin G Subclass 4 8 mg/dL (1-123)
[2016-12-01 11:55] LABS: ANA IgG by ELISA NONE DETECTED (None Detected)
--- NOTE | 2016-12-01 14:08 | Discharge Summary ---
Date of Encounter: 11/30/16 Time of Encounter: 14:00 - Discharge Diagnosis (1) Elevated liver function tests Priority: Primary Status: Acute Comments: Resolving (2) Pancreatitis Priority: Secondary Status: Resolved Qualifiers: Chronicity: acute Pancreatitis type: biliary Acute pancreatitis complication: no infection or necrosis Qualified Code(s): K85.10 - Biliary acute pancreatitis without necrosis or infection (3) S/P cholecystectomy Priority: Secondary Status: Acute (4) Ascending cholangitis Priority: Secondary Status: Acute - Discharge Medications Home Medications: Calcium Carbonate/Vitamin D3 [Calcium 600-Vit D3 400 Tablet] 1 tab PO BID [History] Fluticasone Propionate Nasal [Flonase] 1 spray NS DAILY 10/19/16 [History] Glucosamine HCl/Chondr Florez A Na [[facility]vs Glucosamine-Chondr Tablet] 1 tab PO BID [History] Lisinopril/Hydrochlorothiazide [Zestoretic 10-12.5 mg Tablet] 1 tab PO DAILY [History] Sildenafil Citrate [Viagra] 50 - 100 mg PO DAILY PRN 10/19/16 [History] Allergies/Adverse Reactions: Allergies No Known Allergies Allergy (Verified 11/22/16 19:49) General Surgery Exam Initial Vital Signs Temp Pulse Resp BP Pulse Ox 99.6 F 104 18 114/71 95 11/28/16 18:30 11/28/16 18:30 11/28/16 18:30 11/28/16 18:30 11/28/16 18:30 - General physical appearance well developed, well nourished, no distress - Eyes normal ocular movement - ENT normal mucosa, atraumatic, normocephalic - Neck trachea midline - Respiratory normal expansion, normal respiratory effort, clear to auscultation - Cardiovascular Cardiovascular exam: Present: RRR, 15, 16 - Abdomen Abdomen general surgery: Present: bowel sounds present, soft, non tender - Incision Incision: Present: clean and dry, intact - Integumentary Integumentary general surgery: Present: warm and dry - Neurologic Present: CN 2-12 grossly intact - Musculoskeletal Present: normal gait, normal posture - Psychiatric Psychiatric general surgery: Present: appropriate, oriented to person, oriented to place, oriented to time, speech is normal, memory intact Date of admission: 11/29/16 15:39 Primary care physician: Dennis Godwin MD Discharging clinician: Gene Ruff (Madeline Mora) Anticipated date of discharge: 12/01/16 - Patient Status Disposition: Home, Self-Care Condition: Good Functional capacity at discharge: independent ambulation Overall status at discharge: patient is progressing back to baseline - Discharge Instructions Follow Up With: Dennis Godwin MD [Primary Care Provider] - Jeramy Mckeon MD [Partnered Physician] - (1-2 weeks; hospital follow-up) Gayle Mora CNP [Advanced Practice Nurse] - 12/08/16 10:45 am (surgery follow-up) Additional Instructions: May shower, no tub bath X 1 week Wash incisions with soap and water and pat dry daily No lifting/pushing/pulling greater than 15 lb. X 1 week No driving until off narcotics for 24 hours and able to safely react in the car May climb stairs - Diet and Activity Activity: increase activity as tolerated Diet: advance to your usual diet - Hospital Course Hospital course: Mr. Ron is a 61 year old male w/p cholecystectomy reported back to the ED with complaints of nausea/vomiting and abdominal discomfort. He was noted to have elevated liver function tests and pancreatits. HIDA scan was negative for a leak. He was treated with IV fluids and Dr. Mckeon was consulted for ERCP. Dr. Mckeon was unable to cannulate the CBD. His liver function tests and lipase have trended toward normal. His symptoms have resolved and he is tolerated clear liquid diet. His vital signs are stable and he is afebrile. We will begin discharge planning and plan for outpatient labs in 1 week and then follow-up with Dr. Mckeon. - Time Spent with Patient Total time spent providing and/or coordinating discharge services: Less than 30 minutes Labs on day of discharge: Labs from last 24 hours 12/01/16 11/30/16 11/30/16 10:00 17:02 11:27 Sodium 137 Potassium 3.3 L Chloride 106 Carbon Dioxide 22 BUN 16 Creatinine 0.76 Est GFR ( Amer) > 60 Est GFR (Non-Af Amer) > 60 BUN/Creatinine Ratio 21 Glucose 152 H POC Glucose 96 H 78 Calculated Osmolality 288 Calcium 8.2 L Total Bilirubin 1.4 H AST 33 ALT 130 H Alkaline Phosphatase 272 H Serum Total Protein 5.7 L Albumin 2.1 L Globulin 3.6 H Albumin/Globulin Ratio 0.6 L - Impressions ITS Impressions Cath/Invasive Procedure 11/30/16 00:00 IMPRESSION: Fluoroscopic guidance for ERCP. Please see surgical report for complete details. D/ / Jefe Amador MD / Jefe Amador MD Interpreting Provider: Jefe Amador MD
[2016-12-01 15:49] VITALS: BP 144/75
== END 2016-12-01 15:33 | disposition home or self-care (01) | DRG 439 ==
LOC: EMEROO 18:09 → 3ANU 18:09
PROVIDERS: ADMIT Surgery; ATTEND Surgery
PROC: ENDOEUS (2016-11-30 17:30)